=== PATIENT | female | born 1970 | race Two or more races ===

== ENCOUNTER 2018-07-25 10:55 | Inpatient (IN) | payer BC ==
[~2018-07-25] VITALS: Ht 162.6 cm; Wt 54.3 kg
[2018-07-25] MEDS ORDERED: SODIUM CHLORIDE 0.9% 1,000 ML IVB ONE (11:02)
[2018-07-25 11:22] LABS: Basophils # (auto) 0 uL; Basophils % (auto) 0.3 % (0.0-2.0); Eosinophils # (auto) 0 uL; Hemoglobin 15.3 g/dL (12.2-16.2); Lymphocytes # (auto) 0.7 uL; Lymphocytes % (auto) 6.9 % (10.0-50.0); Mean Corpuscular Hemoglobin 30.7 pg (28.0-32.0); Mean Corpuscular Hgb Conc. 34.1 g/dL (32.0-36.0); Mean Corpuscular Volume 90.1 fL (80.0-100.0); Monocytes # (auto) 0.2 uL; Monocytes % (auto) 1.6 % (0.0-12.0); Neutrophils # (auto) 9.6 uL; Neutrophils % (auto) 91.2 % (37.0-80.0); Platelet Count (auto) 191 10^3/uL (140-450); Red Blood Cells 4.99 10^6/uL (4.0-5.20); Red Cell Distribution Width 13.1 % (11.8-14.3); White Blood Cell 10.5 10^3/uL (4.4-10.8)
[2018-07-25 11:35] LABS: INR 0.92 (0.9-1.15); Partial Thromboplastin Time 22.3 sec (23.78-33.04); Prothrombin Time 9.9 sec (9.27-12.13)
[2018-07-25 11:40] LABS: Alanine Aminotransferase 17 U/L (13-56); Albumin 3.9 g/dL (3.4-5.0); Anion Gap 9 (5-15); Aspartate Aminotransferase 11 U/L (15-37); BUN/Creatinine Ratio 19.7; Blood Alcohol < 3.0 mg/dL (0-5); Blood Urea Nitrogen 13 mg/dL (7-18); Calcium 8.9 mg/dL (8.5-10.1); Carbon Dioxide 21 mmol/L (21-32); Chloride 105 mmol/L (98-107); GFR African American 122 mL/min; GFR Non-African American 101 mL/min; Glucose 363 mg/dL (74-106); Magnesium 2.2 mg/dL (1.6-2.6); Potassium 4.3 mmol/L (3.5-5.1); Sodium 135 mmol/L (136-145)
[2018-07-25 11:44] LABS: Alkaline Phosphatase 84 U/L (45-117); Bilirubin, Total 0.9 mg/dL (0.2-1.0); Total Protein 7.6 g/dL (6.4-8.2)
[2018-07-25 15:30] LABS: Urine Bacteria FEW /hpf (None Seen); Urine Blood Negative /uL (Negative); Urine WBC 2 /hpf (0 - 5)
[2018-07-25] MEDS ORDERED: PROCHLORPERAZINE EDISYLATE 5 MG/ML 2ML VIAL IV ONE (15:30)
[2018-07-25] MEDS ORDERED: KETOROLAC TROMETH 30 MG/ML 1ML VIAL IV ONE (15:45)
[2018-07-25] MEDS: SODIUM CHLORIDE 0.9% 1,000 ML IV SCH (16:28)
[2018-07-25] MEDS ORDERED: LABETALOL HCL 5 MG/ML ML 20ML VIAL IV PRN (16:30)
[2018-07-25] MEDS ORDERED: PROMETHAZINE HCL 25 MG/ML 1ML IV PRN (16:30)
[2018-07-25] MEDS ORDERED: MORPHINE SULFATE 4 MG/ML SYR/VIAL IV PRN ×2 (16:30)
[2018-07-25] MEDS ORDERED: NITROGLYCERIN 0.4 MG SL TAB SL PRN (16:30)
[2018-07-25] MEDS ORDERED: LORazepam 0.5 MG TAB PO PRN (16:30)
[2018-07-25] MEDS ORDERED: LACTULOSE 20Gm/30ML SOLN PO PRN (16:30)
[2018-07-25] MEDS ORDERED: cefTRIAXone 1GM/50ML D5W 50 ML IV ONE (16:30)
[2018-07-25] MEDS ORDERED: DEXTROSE (50%) 50ML SYRG IV PRN (16:30)
[2018-07-25] MEDS ORDERED: TEMAZEPAM 15 MG CAP PO PRN (16:30)
[2018-07-25 18:35] LABS: Alcohol, Urine < 3.0 mg/dL (0-5); Amphetamine Screen, Urine NEGATIVE (NEGATIVE); Barbiturate Scree,Urine NEGATIVE (NEGATIVE); Benzodiazephine Screen, Urine NEGATIVE (NEGATIVE); Cannabinoid Screen, Urine NEGATIVE (NEGATIVE); Cocaine Screen, Urine NEGATIVE (NEGATIVE); Opiate Scree,Urine NEGATIVE (NEGATIVE); Phencyclidine Screen, Urine NEGATIVE (NEGATIVE)
[2018-07-25 18:59] LABS: CRP High Sensitivity 0.18 mg/dL (< 0.3)
[2018-07-25 19:42] VITALS: BP 120/71
[2018-07-25 19:46] LABS: Folate (Folic Acid) 23.86 ng/mL (5.38-24)
[2018-07-25] MEDS ORDERED: LORazepam 2MG/ML-1ML VIAL IV PRN (20:00)
[2018-07-25 20:04] VITALS: BP 120/71
[2018-07-25] MEDS: FAMOTIDINE 20 MG TAB PO SCH (22:40)
[2018-07-25] MEDS: ACCU-CHEK COMFORT CURVE STRIP VI SCH (22:40)
[2018-07-25] MEDS: ATORVASTATIN 20 MG TAB PO SCH (22:40)
[2018-07-25] MEDS: InsuLIN REG 1unit/0.01ml Soln (100units/ml) SC SCH (22:41)
[2018-07-26] MEDS: ACCU-CHEK COMFORT CURVE STRIP VI SCH ×6 (00:19→19:36)
[2018-07-26] MEDS: InsuLIN REG 1unit/0.01ml Soln (100units/ml) SC SCH ×6 (00:20→19:45)
[2018-07-26] MEDS: SODIUM CHLORIDE 0.9% 1,000 ML IV SCH ×2 (03:58→16:25)
[2018-07-26 05:53] VITALS: BP 121/71
[2018-07-26 06:24] LABS: Cholesterol 184 mg/dL (< 200)
[2018-07-26 06:27] LABS: HDL Cholesterol 40 mg/dL (40-59); LDL Cholesterol 122 mg/dL (< 100); Triglycerides 240 mg/dL (< 150)
[2018-07-26] MEDS: cefTRIAXone 1GM/50ML D5W 50 ML IV SCH (08:29)
[2018-07-26 09:00] VITALS: BP 114/70
[2018-07-26] MEDS: ENOXAPARIN SOD 40 MG/0.4 ML SYRINGE SC SCH (10:26)
[2018-07-26] MEDS: ASPirin 81 mg TAB PO SCH (10:26)
[2018-07-26] MEDS: FAMOTIDINE 20 MG TAB PO SCH ×2 (10:26→22:42)
[2018-07-26] MEDS: HYDROcodone-ACET 5/325MG TAB PO PRN (10:56)
[2018-07-26 13:00] VITALS: BP 130/81
[2018-07-26] MEDS ORDERED: OMEP20TA PO (16:43)
[2018-07-26] MEDS ORDERED: CHOL20007 PO (16:44)
[2018-07-26] MEDS ORDERED: ATOR20TA50 PO (16:44)
[2018-07-26] MEDS ORDERED: ENAL2.5T PO (16:45)
[2018-07-26] MEDS ORDERED: GABA100C9 PO (16:45)
[2018-07-26] MEDS ORDERED: INSU100I2 SC (16:45)
[2018-07-26] MEDS ORDERED: INSLANTI SC (16:46)
[2018-07-26 17:21] VITALS: BP 134/74
[2018-07-26] MEDS: ACETAMINOPHEN 500 MG TAB PO PRN (19:31)
[2018-07-26 22:00] VITALS: BP 148/80
[2018-07-26] MEDS: ATORVASTATIN 20 MG TAB PO SCH (22:42)
[2018-07-27] MEDS: InsuLIN REG 1unit/0.01ml Soln (100units/ml) SC SCH ×6 (00:01→21:10)
[2018-07-27] MEDS: ACCU-CHEK COMFORT CURVE STRIP VI SCH ×6 (00:01→20:00)
[2018-07-27 05:00] VITALS: BP 124/73
[2018-07-27] MEDS: SODIUM CHLORIDE 0.9% 1,000 ML IV SCH ×2 (07:33→18:25)
[2018-07-27] MEDS: ACETAMINOPHEN 500 MG TAB PO PRN (07:40)
[2018-07-27] MEDS: cefTRIAXone 1GM/50ML D5W 50 ML IV SCH (08:40)
[2018-07-27 08:44] VITALS: BP 140/83
[2018-07-27 08:46] VITALS: BP 137/68
[2018-07-27] MEDS: FAMOTIDINE 20 MG TAB PO SCH ×2 (09:35→21:13)
[2018-07-27] MEDS: ENOXAPARIN SOD 40 MG/0.4 ML SYRINGE SC SCH (09:35)
[2018-07-27] MEDS: ASPirin 81 mg TAB PO SCH (09:35)
[2018-07-27 13:00] VITALS: BP 155/75
[2018-07-27] MEDS: HYDROcodone-ACET 5/325MG TAB PO PRN (15:10)
[2018-07-27 16:31] VITALS: BP 155/91
[2018-07-27] MEDS ORDERED: ENALAPRIL MALEATE 2.5 MG TAB PO ONE (18:15)
[2018-07-27] MEDS: ATORVASTATIN 20 MG TAB PO SCH (21:13)
[2018-07-27 21:36] VITALS: BP 119/68
[2018-07-28] MEDS: ACCU-CHEK COMFORT CURVE STRIP VI SCH ×5 (00:13→16:00)
[2018-07-28] MEDS: InsuLIN REG 1unit/0.01ml Soln (100units/ml) SC SCH ×5 (04:30→16:00)
[2018-07-28 04:48] VITALS: BP 127/69
[2018-07-28] MEDS: SODIUM CHLORIDE 0.9% 1,000 ML IV SCH (06:58)
[2018-07-28 09:00] VITALS: BP 135/71
[2018-07-28] MEDS ORDERED: ENALAPRIL MALEATE 2.5 MG TAB PO SCH (10:00)
[2018-07-28] MEDS: ENOXAPARIN SOD 40 MG/0.4 ML SYRINGE SC SCH (10:21)
[2018-07-28] MEDS: cefTRIAXone 1GM/50ML D5W 50 ML IV SCH (10:21)
[2018-07-28] MEDS: FAMOTIDINE 20 MG TAB PO SCH (10:22)
[2018-07-28] MEDS: ASPirin 81 mg TAB PO SCH (10:22)
[2018-07-28] MEDS: HYDROcodone-ACET 5/325MG TAB PO PRN (10:23)
[2018-07-28 13:00] VITALS: BP 128/68
== END 2018-07-28 17:30 | disposition home or self-care (01) | DRG 155 ==
LOC: EDBD 10:55 → ER 10:59 → TELE 16:40 → TELE-WESTW 19:43
PROVIDERS: ADMIT Internal Medicine; ATTEND Family Medicine
DX: H93.11 Tinnitus, right ear (principal); N39.0 Urinary tract infection, site not specified; E78.5 Hyperlipidemia, unspecified; E78.00 Pure hypercholesterolemia, unspecified; E11.65 Type 2 diabetes mellitus with hyperglycemia; E03.9 Hypothyroidism, unspecified; E86.0 Dehydration; I10 Essential (primary) hypertension; E11.42 Type 2 diabetes mellitus with diabetic polyneuropathy; R00.0 Tachycardia, unspecified; H91.91 Unspecified hearing loss, right ear; E66.3 Overweight; Z82.49 Family history of ischemic heart disease and other diseases of the circulatory system; Z90.710 Acquired absence of both cervix and uterus; Z98.82 Breast implant status; Z83.3 Family history of diabetes mellitus; Z68.20 Body mass index [BMI] 20.0-20.9, adult
CPT/HCPCS: 36415; 70450; 70480; 70551; 71045; 80053; 80061; 80307; 80320; 81001; 82150; 82550; 82607; 82746; 82962; 83036; 83690; 83735; 84443; 84484; 85025; 85379; 85610; 85652; 85730; 86141; 93005; 93306; 93886; 94761; 96374; 96375; 97163; G0378; J0696; J1815; J1885

== ENCOUNTER → 2023-07-05 | Outpatient (CLI) | payer OTHER ==
[~2023-07-05] MED LIST: ATOR20TA50 PO; CEFD300C2 PO; CHOL20007 PO; ENAL1TAB42 PO; GABA-1308 PO; INSLANTI SC; INSU100I2 SC; OMEP20TA PO
[2023-07-05 08:19] LABS: Basophils # (auto) 0 10 ^3/uL (0-0.2); Basophils % (auto) 0.7 % (0.0-2.0); Eosinophils # (auto) 0.1 10 ^3/uL (0-0.8); Eosinophils % (auto) 2.2 % (0.0-7.0); Hemoglobin 13.6 g/dL (12.2-16.2); Lymphocytes # (auto) 3.1 10 ^3/uL (0.4-5.4); Mean Corpuscular Hemoglobin 29.7 pg (28.0-32.0); Mean Corpuscular Hgb Conc. 33.2 g/dL (32.0-36.0); Mean Corpuscular Volume 89.5 fL (80.0-100.0); Monocytes # (auto) 0.4 10 ^3/uL (0-1.3); Monocytes % (auto) 5.9 % (0.0-12.0); Neutrophils # (auto) 2.5 10 ^3/uL (1.6-8.6); Neutrophils % (auto) 40.2 % (37.0-80.0); Red Blood Cells 4.58 10^6/uL (4.0-5.20); Red Cell Distribution Width 13.6 % (11.8-14.3); White Blood Cell 6.1 10^3/uL (4.4-10.8)
[2023-07-05 08:37] LABS: Urine Bacteria FEW /hpf (None Seen); Urine Blood Negative /uL (Negative); Urine Clarity Clear (Clear); Urine Color Yellow (Yellow); Urine Protein, UAD 1+ (Negative); Urine Specific Gravity 1.031 (1.001-1.035); Urine Urobilinogen Normal (Negative); Urine WBC 19 /hpf (0 - 5); Urine pH 5.5 (5.0-8.0)
[2023-07-05 09:40] LABS: Alanine Aminotransferase 21 U/L (7-40); Albumin 4.3 g/dL (3.2-4.8); Alkaline Phosphatase 99 U/L (46-116); Anion Gap 8 (5-15); Aspartate Aminotransferase 17 U/L (13-40); BUN/Creatinine Ratio 19.3 (10.0-20.0); Blood Urea Nitrogen 16 mg/dL (9-23); Calcium 9.9 mg/dL (8.5-10.1); Carbon Dioxide 27 mmol/L (20-30); Chloride 105 mmol/L (98-107); Glucose 229 mg/dL (74-106); Potassium 4.4 mmol/L (3.5-5.1); Sodium 140 mmol/L (136-145); Triglycerides 676 mg/dL (< 150)
[2023-07-05 09:41] LABS: Bilirubin, Total 0.4 mg/dL (0.2-1.0); Cholesterol 329 mg/dL (< 200); Creatinine, Urine 36.88 mg/dL (30.0-125.0); HDL Cholesterol 44 mg/dL (40-59); Total Protein 7.1 g/dL (5.7-8.2)
== END | disposition home or self-care (01) ==
LOC: LAB 07:51
PROVIDERS: ATTEND Student in an Organized Health Care Education/Training Program
DX: E11.21 Type 2 diabetes mellitus with diabetic nephropathy (principal); E05.90 Thyrotoxicosis, unspecified without thyrotoxic crisis or storm; K30 Functional dyspepsia
CPT/HCPCS: 36415; 80053; 80061; 81001; 82043; 82306; 82570; 83036; 84436; 84443; 85025

== ENCOUNTER → 2023-07-11 | Outpatient (CLI) | payer OTHER | END | disposition home or self-care (01) | LOC: LAB 06:38 | PROVIDERS: ATTEND Student in an Organized Health Care Education/Training Program | DX: E11.21 Type 2 diabetes mellitus with diabetic nephropathy (principal); E05.90 Thyrotoxicosis, unspecified without thyrotoxic crisis or storm; K30 Functional dyspepsia | CPT/HCPCS: 82270 ==

== ENCOUNTER → 2023-07-17 | Outpatient (CLI) | payer OTHER ==
[2023-07-17 08:58] LABS: Alanine Aminotransferase 19 U/L (7-40); Albumin 4.3 g/dL (3.2-4.8); Alkaline Phosphatase 119 U/L (46-116); Amylase 59 U/L (30-118); Anion Gap 6 (5-15); Aspartate Aminotransferase 13 U/L (13-40); BUN/Creatinine Ratio 14.9 (10.0-20.0); Bilirubin, Total 0.5 mg/dL (0.2-1.0); Blood Urea Nitrogen 14 mg/dL (9-23); Carbon Dioxide 29 mmol/L (20-30); Chloride 104 mmol/L (98-107); Glucose 349 mg/dL (74-106); Potassium 4.7 mmol/L (3.5-5.1); Sodium 139 mmol/L (136-145); Total Protein 7.3 g/dL (5.7-8.2)
[2023-07-17 09:06] LABS: Lipase 38 U/L (12-53)
== END | disposition home or self-care (01) ==
LOC: LAB 08:18
PROVIDERS: ATTEND Student in an Organized Health Care Education/Training Program
DX: R10.84 Generalized abdominal pain (principal)
CPT/HCPCS: 36415; 80053; 82150; 83690

== ENCOUNTER 2023-12-01 08:08 | Inpatient (IN) | payer MEDICAID, OTHER ==
[~2023-12-01] VITALS: Ht 154.9 cm; Wt 59.8 kg
[2023-12-01 08:44] LABS: Urine Bacteria MANY /hpf (None Seen); Urine Blood TRACE /uL (Negative); Urine Clarity Turbid (Clear); Urine Color Yellow (Yellow); Urine Mucus FEW (None Seen); Urine Protein, UAD 3+ (Negative); Urine Specific Gravity 1.027 (1.001-1.035); Urine Urobilinogen Normal (Negative); Urine WBC 30 /hpf (0 - 5)
[2023-12-01] MEDS: cloNIDine HCL 0.1 MG TAB PO ONE (08:51)
[2023-12-01 08:58] LABS: Basophils # (auto) 0.1 10 ^3/uL (0-0.2); Basophils % (auto) 0.5 % (0.0-2.0); Eosinophils # (auto) 0.3 10 ^3/uL (0-0.8); Eosinophils % (auto) 2.9 % (0.0-7.0); Hematocrit 43.6 % (36.0-46.0); Hemoglobin 14.8 g/dL (12.2-16.2); Lymphocytes # (auto) 2.2 10 ^3/uL (0.4-5.4); Lymphocytes % (auto) 22.7 % (10.0-50.0); Mean Corpuscular Hemoglobin 30.1 pg (28.0-32.0); Mean Corpuscular Hgb Conc. 33.9 g/dL (32.0-36.0); Mean Corpuscular Volume 88.6 fL (80.0-100.0); Monocytes # (auto) 0.4 10 ^3/uL (0-1.3); Monocytes % (auto) 4.3 % (0.0-12.0); Neutrophils # (auto) 6.8 10 ^3/uL (1.6-8.6); Neutrophils % (auto) 69.6 % (37.0-80.0); Red Blood Cells 4.92 10^6/uL (4.0-5.20); Red Cell Distribution Width 13.7 % (11.8-14.3); White Blood Cell 9.8 10^3/uL (4.4-10.8)
[2023-12-01 09:05] LABS: Alanine Aminotransferase 24 U/L (7-40); Albumin 4.6 g/dL (3.2-4.8); Alkaline Phosphatase 97 U/L (46-116); Anion Gap 7 (5-15); Aspartate Aminotransferase 19 U/L (13-40); BUN/Creatinine Ratio 14.1 (10.0-20.0); Bilirubin, Total 0.4 mg/dL (0.2-1.0); Blood Urea Nitrogen 11 mg/dL (9-23); Calcium 9.9 mg/dL (8.5-10.1); Carbon Dioxide 25 mmol/L (20-30); Chloride 105 mmol/L (98-107); Glucose 282 mg/dL (74-106); Potassium 4.2 mmol/L (3.5-5.1); Sodium 137 mmol/L (136-145); Total Protein 7.8 g/dL (5.7-8.2)
[2023-12-01] MEDS: cefTRIAXone 1GM/50ML D5W 50 ML IV ONE (10:56)
[2023-12-01 11:29] VITALS: PULSE 74; RESP 16; O2SAT 96
[2023-12-01] MEDS ORDERED: DEXTROSE (50%) 50ML SYRG IV PRN (11:30)
[2023-12-01] MEDS ORDERED: DOCUSATE SOD 100 MG CAP PO PRN (11:30)
[2023-12-01] MEDS: PIPERACILLIN-TAZOB 3.375GM 100 ML IV ONE (11:58)
[2023-12-01] MEDS: ACCU-CHEK COMFORT CURVE STRIP VI SCH (12:03)
[2023-12-01] MEDS: InsuLIN REG 1unit/0.01ml Soln (100units/ml) SC SCH ×2 (12:03→21:05)
[2023-12-01] MEDS: GABAPENTIN 100 MG CAP PO SCH (13:19)
[2023-12-01] MEDS: IOHEXOL 300 MG/ML 100ML BOTTLE IJ ONE (13:39)
[2023-12-01 17:00] VITALS: BP 142/72; PULSE 74; RESP 20; TEMP 98; O2SAT 98
[2023-12-01] MEDS: SODIUM CHLORIDE 0.9% 1,000 ML IV SCH (17:18)
[2023-12-01] MEDS: ONDANSETRON HCL 4 MG/2 ML VIAL IV PRN (18:19)
[2023-12-01] MEDS: MORPHINE SULFATE INJ 2 MG/ml SYRG IV PRN (18:22)
[2023-12-01 18:23] VITALS: BP_SYST 140; BP_SYST 142; BP_DIAS 72; BP_DIAS 73; PULSE 74; PULSE 75; RESP 18; RESP 20; TEMP 98; O2SAT 98
[2023-12-01] MEDS: PIPERACILLIN-TAZOB 3.375GM 100 ML IV SCH (19:55)
[2023-12-01 20:00] VITALS: BP 112/65; PULSE 77; RESP 17; TEMP 97.7; O2SAT 94
[2023-12-01] MEDS ORDERED: EMPA1TAB3 PO (20:27)
[2023-12-01 21:00] VITALS: BP 112/65; PULSE 77; RESP 17; TEMP 97.7; O2SAT 94
[2023-12-02] VITALS (8 sets, daily range): BP systolic 126–153; BP diastolic 66–74; PULSE 74–79; RESP 16–18; TEMP 97.8–98.8; O2SAT 93–97
[2023-12-02 07:08] LABS: Basophils # (auto) 0.1 10 ^3/uL (0-0.2); Basophils % (auto) 0.6 % (0.0-2.0); Eosinophils # (auto) 0.3 10 ^3/uL (0-0.8); Eosinophils % (auto) 3.9 % (0.0-7.0); Hematocrit 35.8 % (36.0-46.0); Hemoglobin 12.1 g/dL (12.2-16.2); Lymphocytes # (auto) 3.6 10 ^3/uL (0.4-5.4); Lymphocytes % (auto) 40.1 % (10.0-50.0); Mean Corpuscular Hemoglobin 29.6 pg (28.0-32.0); Mean Corpuscular Hgb Conc. 33.9 g/dL (32.0-36.0); Mean Corpuscular Volume 87.2 fL (80.0-100.0); Monocytes # (auto) 0.6 10 ^3/uL (0-1.3); Neutrophils # (auto) 4.3 10 ^3/uL (1.6-8.6); Neutrophils % (auto) 48.4 % (37.0-80.0); Nucleated Red Blood Cells % 0.1 %; Red Cell Distribution Width 14.2 % (11.8-14.3); White Blood Cell 8.9 10^3/uL (4.4-10.8)
[2023-12-02 07:29] LABS: Alanine Aminotransferase 14 U/L (7-40); Albumin 3.7 g/dL (3.2-4.8); Alkaline Phosphatase 68 U/L (46-116); Anion Gap 8 (5-15); Aspartate Aminotransferase 14 U/L (13-40); BUN/Creatinine Ratio 15.9 (10.0-20.0); Bilirubin, Total 0.5 mg/dL (0.2-1.0); Blood Urea Nitrogen 14 mg/dL (9-23); Calcium 9.3 mg/dL (8.7-10.4); Carbon Dioxide 25 mmol/L (20-30); Chloride 107 mmol/L (98-107); Glucose 138 mg/dL (74-106); Potassium 3.9 mmol/L (3.5-5.1); Sodium 140 mmol/L (136-145)
[2023-12-02 07:30] LABS: Total Protein 6.1 g/dL (5.7-8.2)
[2023-12-02] MEDS: ATORVASTATIN 20 MG TAB PO SCH ×2 (09:14→20:49)
[2023-12-02] MEDS: ENALAPRIL MALEATE 2.5 MG TAB PO SCH (09:14)
[2023-12-02] MEDS: PANTOPRAZOLE 40 MG TAB PO SCH (09:14)
[2023-12-02 10:10] LABS: Phosphorus 4.8 mg/dL (2.4-5.1)
[2023-12-02 11:06] LABS: INR 0.99 (0.9-1.15); Partial Thromboplastin Time 24.5 SEC (24.5-34.5); Prothrombin Time 10.5 sec (9.3-11.8)
[2023-12-02] MEDS: CHOLECALCIFEROL (VITD3) 1,000UNIT=25mCg TAB PO SCH (13:16)
[2023-12-02] MEDS: MEROPENEM 1GM IVPB 50 ML IV SCH (17:00)
[2023-12-02] MEDS: hydrALAZINE HCL 20 MG/ML VL IV PRN (19:22)
[2023-12-03] VITALS (8 sets, daily range): BP systolic 118–166; BP diastolic 62–76; PULSE 63–98; RESP 16–20; TEMP 97.4–98.5; O2SAT 96–98
[2023-12-03] MEDS: ACETAMINOPHEN 325 MG TAB PO PRN (05:32)
[2023-12-03 06:14] LABS: Basophils # (auto) 0 10 ^3/uL (0-0.2); Basophils % (auto) 0.4 % (0.0-2.0); Eosinophils # (auto) 0.2 10 ^3/uL (0-0.8); Eosinophils % (auto) 2.2 % (0.0-7.0); Hematocrit 35.9 % (36.0-46.0); Hemoglobin 12.4 g/dL (12.2-16.2); Lymphocytes # (auto) 2.3 10 ^3/uL (0.4-5.4); Lymphocytes % (auto) 28.7 % (10.0-50.0); Mean Corpuscular Hemoglobin 30.1 pg (28.0-32.0); Mean Corpuscular Hgb Conc. 34.5 g/dL (32.0-36.0); Mean Corpuscular Volume 87.3 fL (80.0-100.0); Monocytes # (auto) 0.6 10 ^3/uL (0-1.3); Monocytes % (auto) 7.3 % (0.0-12.0); Neutrophils # (auto) 4.9 10 ^3/uL (1.6-8.6); Neutrophils % (auto) 61.4 % (37.0-80.0); Red Blood Cells 4.11 10^6/uL (4.0-5.20); Red Cell Distribution Width 13.4 % (11.8-14.3); White Blood Cell 8.1 10^3/uL (4.4-10.8)
[2023-12-03] MEDS: INSULIN LANTUS (GLARGINE) 1 /0.01ml (100units/ml) SC SCH (06:18)
[2023-12-03 06:24] LABS: Alanine Aminotransferase 15 U/L (7-40); Albumin 3.6 g/dL (3.2-4.8); Alkaline Phosphatase 66 U/L (46-116); Anion Gap 9 (5-15); Aspartate Aminotransferase 15 U/L (13-40); BUN/Creatinine Ratio 13.6 (10.0-20.0); Blood Urea Nitrogen 9 mg/dL (9-23); Calcium 9.3 mg/dL (8.7-10.4); Carbon Dioxide 22 mmol/L (20-30); Chloride 110 mmol/L (98-107); Glucose 156 mg/dL (74-106); Magnesium 1.9 mg/dL (1.6-2.6); Potassium 3.8 mmol/L (3.5-5.1); Sodium 141 mmol/L (136-145)
[2023-12-03 06:25] LABS: Bilirubin, Total 0.6 mg/dL (0.2-1.0); Phosphorus 3.5 mg/dL (2.4-5.1); Total Protein 6.2 g/dL (5.7-8.2)
[2023-12-03] MEDS: ENALAPRIL MALEATE 2.5 MG TAB PO SCH (10:35)
[2023-12-03] MEDS: ASPirin 81 mg TAB PO ONE (11:48)
[2023-12-03] MEDS ORDERED: IOTHALAMATE MEGLUMINE INJ 250ML BOT UR ONE (12:32)
[2023-12-03] MEDS: hydrOXYzine HCL 10 MG TAB PO PRN (22:14)
[2023-12-04] VITALS (9 sets, daily range): BP systolic 122–173; BP diastolic 51–82; PULSE 75–96; RESP 16–20; TEMP 98.1–98.8; O2SAT 94–98
[2023-12-04 05:27] LABS: Basophils # (auto) 0 10 ^3/uL (0-0.2); Basophils % (auto) 0.3 % (0.0-2.0); Eosinophils # (auto) 0.1 10 ^3/uL (0-0.8); Eosinophils % (auto) 1.5 % (0.0-7.0); Hematocrit 35.4 % (36.0-46.0); Lymphocytes # (auto) 3.3 10 ^3/uL (0.4-5.4); Lymphocytes % (auto) 33.5 % (10.0-50.0); Mean Corpuscular Hemoglobin 29.8 pg (28.0-32.0); Mean Corpuscular Volume 87.6 fL (80.0-100.0); Monocytes # (auto) 0.6 10 ^3/uL (0-1.3); Monocytes % (auto) 6.5 % (0.0-12.0); Neutrophils # (auto) 5.7 10 ^3/uL (1.6-8.6); Neutrophils % (auto) 58.2 % (37.0-80.0); Nucleated Red Blood Cells % 0.1 %; Red Blood Cells 4.04 10^6/uL (4.0-5.20); Red Cell Distribution Width 13.9 % (11.8-14.3); White Blood Cell 9.8 10^3/uL (4.4-10.8)
[2023-12-04 05:39] LABS: Alanine Aminotransferase 12 U/L (7-40); Albumin 3.6 g/dL (3.2-4.8); Alkaline Phosphatase 63 U/L (46-116); Anion Gap 8 (5-15); Aspartate Aminotransferase 14 U/L (13-40); Bilirubin, Total 0.6 mg/dL (0.2-1.0); Blood Urea Nitrogen 9 mg/dL (9-23); Calcium 9.3 mg/dL (8.7-10.4); Carbon Dioxide 23 mmol/L (20-30); Chloride 110 mmol/L (98-107); Glucose 115 mg/dL (74-106); Potassium 3.7 mmol/L (3.5-5.1); Sodium 141 mmol/L (136-145); Total Protein 6.1 g/dL (5.7-8.2)
[2023-12-04 06:10] LABS: Phosphorus 3.6 mg/dL (2.4-5.1)
[2023-12-04] MEDS: ASPirin 81 mg TAB PO SCH (09:27)
[2023-12-04] MEDS: amLODIPine BESYLATE 5 MG TAB PO SCH (09:28)
[2023-12-04 19:32] LABS: Urine Bacteria None Seen /hpf (None Seen)
[2023-12-04 20:02] LABS: Urine Blood Negative /uL (Negative); Urine Clarity Clear (Clear); Urine Color Colorless (Yellow); Urine Protein, UAD 1+ (Negative); Urine Urobilinogen Normal (Negative); Urine WBC 3 /hpf (0 - 5)
[2023-12-04 20:10] LABS: Amphetamine Screen, Urine Neg (NEGATIVE); Barbiturate Scree,Urine Neg (NEGATIVE); Benzodiazephine Screen, Urine Neg (NEGATIVE); Cocaine Screen, Urine Neg (NEGATIVE); Opiate Scree,Urine Neg (NEGATIVE)
[2023-12-04 20:11] LABS: Cannabinoid Screen, Urine Neg (NEGATIVE); Phencyclidine Screen, Urine Neg (NEGATIVE)
[2023-12-04] MEDS: ENALAPRIL MALEATE 10 MG TAB PO SCH (22:45)
[2023-12-05 05:00] VITALS: BP 110/41; PULSE 82; RESP 16; TEMP 98.1; O2SAT 96
[2023-12-05 06:24] LABS: Basophils # (auto) 0 10 ^3/uL (0-0.2); Basophils % (auto) 0.3 % (0.0-2.0); Eosinophils # (auto) 0.2 10 ^3/uL (0-0.8); Hematocrit 34.9 % (36.0-46.0); Hemoglobin 11.7 g/dL (12.2-16.2); Lymphocytes # (auto) 3.3 10 ^3/uL (0.4-5.4); Lymphocytes % (auto) 36.7 % (10.0-50.0); Mean Corpuscular Hemoglobin 29.6 pg (28.0-32.0); Mean Corpuscular Hgb Conc. 33.5 g/dL (32.0-36.0); Mean Corpuscular Volume 88.4 fL (80.0-100.0); Monocytes # (auto) 0.8 10 ^3/uL (0-1.3); Monocytes % (auto) 8.9 % (0.0-12.0); Neutrophils # (auto) 4.7 10 ^3/uL (1.6-8.6); Neutrophils % (auto) 52.1 % (37.0-80.0); Red Blood Cells 3.94 10^6/uL (4.0-5.20)
[2023-12-05 06:29] LABS: Chloride 114 mmol/L (98-107); Potassium 3.5 mmol/L (3.5-5.1)
[2023-12-05 06:30] LABS: Anion Gap 8 (5-15); Carbon Dioxide 25 mmol/L (20-30)
[2023-12-05 06:31] LABS: Calcium 8.8 mg/dL (8.5-10.1)
[2023-12-05 06:35] LABS: Glucose 78 mg/dL (74-106)
[2023-12-05 06:36] LABS: BUN/Creatinine Ratio 9.1 (10.0-20.0); Blood Urea Nitrogen 6 mg/dL (9-23)
[2023-12-05 06:38] LABS: Phosphorus 3.5 mg/dL (2.4-5.1)
[2023-12-05 07:03] LABS: Sodium 147 mmol/L (136-145)
[2023-12-05 07:18] LABS: Magnesium 2.2 mg/dL (1.6-2.6)
[2023-12-05] MEDS ORDERED: ENAL1TAB47 PO (07:26)
[2023-12-05] MEDS ORDERED: CEPH250C PO (07:26)
[2023-12-05] MEDS ORDERED: ATOR20TA50 PO (07:26)
[2023-12-05] MEDS ORDERED: ASPI-325 PO (07:26)
[2023-12-05] MEDS ORDERED: AML5T PO (07:26)
[2023-12-05] MEDS ORDERED: HYDRX10T PO (07:26)
[2023-12-05 08:00] VITALS: BP 135/56; PULSE 80; RESP 18; TEMP 98.8; O2SAT 97
[2023-12-05 08:43] VITALS: BP 135/56; PULSE 80; RESP 18; TEMP 98.8; O2SAT 97
[2023-12-05] MEDS ORDERED: GLIP10TA9 PO (10:20)
[2023-12-05 10:35] VITALS: BP 135/56; TEMP 37.1
[2023-12-05 12:25] VITALS: BP 119/65; PULSE 85; RESP 19; TEMP 97.9; O2SAT 94
== END 2023-12-05 13:10 | disposition home or self-care (01) | DRG 463 ==
LOC: ER 08:08 → OVERFLOW 12:48 → CENTRAL 17:46
PROVIDERS: ADMIT Internal Medicine; ATTEND Internal Medicine
DX: N30.80 Other cystitis without hematuria (principal); E03.9 Hypothyroidism, unspecified; E11.65 Type 2 diabetes mellitus with hyperglycemia; E78.5 Hyperlipidemia, unspecified; I16.0 Hypertensive urgency; K21.9 Gastro-esophageal reflux disease without esophagitis; K80.20 Calculus of gallbladder without cholecystitis without obstruction; Z79.4 Long term (current) use of insulin; Z79.899 Other long term (current) drug therapy; Z79.84 Long term (current) use of oral hypoglycemic drugs; Z83.3 Family history of diabetes mellitus; Z82.49 Family history of ischemic heart disease and other diseases of the circulatory system; Z86.73 Personal history of transient ischemic attack (TIA), and cerebral infarction without residual deficits; Z91.148 Patient's other noncompliance with medication regimen for other reason; Z79.82 Long term (current) use of aspirin
CPT/HCPCS: 36415; 74176; 74177; 74430; 80048; 80053; 80061; 80307; 81001; 82306; 82607; 82962; 83036; 83605; 83735; 84100; 84443; 84484; 85025; 85610; 85730; 87040; 87086; 93005; 96365; 96375; G0378; J1815; J2185; J2405; J2543

== ENCOUNTER → 2024-04-28 | Outpatient (CLI) | payer MEDICAID ==
[~2024-04-28] MED LIST changes: +AML5T PO; +ASPI-325 PO; -CEFD300C2 PO; +CEPH250C PO; -ENAL1TAB42 PO; +ENAL1TAB47 PO; +GLIP10TA9 PO; +HYDRX10T PO
[2024-04-28 09:26] LABS: Basophils # (auto) 0 10 ^3/uL (0-0.2); Basophils % (auto) 0.6 % (0.0-2.0); Eosinophils # (auto) 0.2 10 ^3/uL (0-0.8); Eosinophils % (auto) 2.8 % (0.0-7.0); Hemoglobin 11.9 g/dL (12.2-16.2); Lymphocytes # (auto) 3.3 10 ^3/uL (0.4-5.4); Lymphocytes % (auto) 41.9 % (10.0-50.0); Mean Corpuscular Hemoglobin 30.1 pg (28.0-32.0); Mean Corpuscular Hgb Conc. 34.9 g/dL (32.0-36.0); Mean Corpuscular Volume 86.1 fL (80.0-100.0); Monocytes # (auto) 0.5 10 ^3/uL (0-1.3); Monocytes % (auto) 6.5 % (0.0-12.0); Neutrophils # (auto) 3.8 10 ^3/uL (1.6-8.6); Neutrophils % (auto) 48.2 % (37.0-80.0); Platelet Count (auto) 237 10^3/uL (140-450); Red Blood Cells 3.95 10^6/uL (4.0-5.20); White Blood Cell 7.9 10^3/uL (4.4-10.8)
[2024-04-28 09:58] LABS: Alanine Aminotransferase 27 U/L (7-40); Albumin 4.3 g/dL (3.2-4.8); Alkaline Phosphatase 115 U/L (46-116); Anion Gap 7 (5-15); Aspartate Aminotransferase 17 U/L (13-40); BUN/Creatinine Ratio 17.2 (10.0-20.0); Blood Urea Nitrogen 16 mg/dL (9-23); Calcium 10.1 mg/dL (8.7-10.4); Carbon Dioxide 26 mmol/L (20-30); Chloride 109 mmol/L (98-107); Cholesterol 162 mg/dL (< 200); Glucose 197 mg/dL (74-106); HDL Cholesterol 42 mg/dL (40-59); LDL Cholesterol 75 mg/dL (< 100); Potassium 4.5 mmol/L (3.5-5.1); Sodium 142 mmol/L (136-145); Triglycerides 255 mg/dL (< 150)
[2024-04-28 09:59] LABS: Bilirubin, Total 0.4 mg/dL (0.2-1.0); Total Protein 5.6 g/dL (5.7-8.2)
[2024-04-28 13:17] LABS: Folate (Folic Acid) > 24.00 ng/mL (>5.38)
== END | disposition home or self-care (01) ==
LOC: LAB 08:46
DX: E11.40 Type 2 diabetes mellitus with diabetic neuropathy, unspecified (principal); E78.5 Hyperlipidemia, unspecified
CPT/HCPCS: 36415; 80053; 80061; 82306; 82607; 82746; 83036; 84443; 85025

== ENCOUNTER → 2024-05-12 | Outpatient (CLI) | payer MEDICAID ==
[2024-05-12 12:57] LABS: Urine Bacteria FEW /hpf (None Seen); Urine Blood Negative /uL (Negative); Urine Clarity Turbid (Clear); Urine Color Colorless (Yellow); Urine Protein, UAD TRACE (Negative); Urine Specific Gravity 1.013 (1.001-1.035); Urine Urobilinogen Normal (Negative); Urine WBC 8 /hpf (0 - 5)
[2024-05-12 13:19] LABS: Creatinine, Urine 71.81 mg/dL (30.0-125.0)
== END | disposition home or self-care (01) ==
LOC: LAB 12:17
DX: Z12.11 Encounter for screening for malignant neoplasm of colon (principal); E11.40 Type 2 diabetes mellitus with diabetic neuropathy, unspecified; E78.5 Hyperlipidemia, unspecified
CPT/HCPCS: 36415; 81001; 82043; 82274; 82570

== ENCOUNTER 2024-12-06 11:43 | Inpatient (IN) | payer MEDICAID, SELFPAY ==
[~2024-12-06] VITALS: Ht 154.9 cm; Wt 59.0 kg
--- NOTE | 2024-12-06 12:02 | ECG ---
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
--- NOTE | 2024-12-06 12:16 | ED.PDOC ---
HPI (NEURO) HPI Comments 54 y/o F presents with friend for c/o difficulty coming-up with words and headache for the past 2 days. Report having an unwitnessed fall and injuring her tongue, the other day. No lost of consciousness then or additional injuries then. Denies any weakness, dizziness, vision or speech changes, or further associated symptoms. Dagoberto: stroke like HPI: Poor Historian. ONSET OF SYMPTOMS AT LEAST TWO DAYS AGO. Vitals: temperature of 98.0F, pulse of 89, respiratory rate of 18, blood pressure of 221/99, SpO2 of 98%RA Past Medical History: anxiety, DM. HLD, HTN Past Surgical History: cholecystectomy REVIEW OF SYSTEMS: CONSTITUTIONAL: Denies acute: fever, diaphoresis, chills, generalized weakness. HEAD: Denies acute: , photophobia Eyes: Denies acute: Double vision, vision loss, eye pain, eye discharge. EARS: Denies acute: tinnitus, hearing loss, ear discharge, ear pain, THROAT: Denies acute: sore throat, swelling, difficulty swallowing , pain with swallowing, change in voice. NECK: Denies acute: neck pain, neck swelling, stiff neck. HEART: Denies acute : chest pain, palpitations, LUNGS: Denies acute: SOB, wheezing, cough, hemoptysis ABDOMEN: Denies acute: abdominal pain, Nausea, Vomiting, diarrhea, melena , hematemesis, hematochezia SKIN: Denies acute: rash, redness, lesions, itchiness. EXTREMITIES: Denies acute: calf pain, numbness, tingling, weakness, denies pain in extremity. Denies acute: Low back pain. Neuro: Denies acute: tremors, seizure like activity, loss of bowel or bladder function, cauda equina like symptoms. : Denies acute: dysuria, hematuria, flank pain, increase in urinary frequency. PSYCH: Denies acute: hallucination, suicidal ideation, homicidal ideation. FEMALE: Denies acute: abnormal vaginal bleeding, foul odor, unusual discharge. PHYSICAL EXAM: General: ----[id number]----acute distress, awake and alert. Head: normocephalic, atraumatic. Neck: supple, trachea is midline, no swelling. Throat: Normal phonation. Noted right-sided tip of the tongue hematoma. When asked who said that she fell two days ago. Eyes:, no erythema, no purulent discharge, no proptosis, no icterus. Heart: regular rate, regular rhythm, no significant murmur appreciated. Lungs: no apparent respiratory distress, No wheezing, no rhonchi, no crackles. No stridors Clear to auscultation bilaterally. Abdomen: non tender to palpation, non distended, soft, no guarding, no rebound, + bowel sounds. Neuro: Awake, Alert, oriented to name, self, situation, follows commands GCS=15. Having difficulty coming up with the words. Speech is somewhat slurred. Skin: no petechia, no purpura, no cyanosis, non-pale, not jaundice. Lower extremities: --no - Pitting edema no deformity, no focal swelling, no calf TTP. Makes eye contact. moves all four extremities. Face: no apparent facial droop. Ambulating in the ED independently. Able to raise bilateral lower extremity against resistance and holding. Stroke: finger to nose cerebellar testing sluggish on right upper extremity No pronator drift. PERRLA, EOM-I CN 2-12 are grossly intact, No nystagmus. No nuchal rigidity, Kernig's sign, Brudzinski's sign, no meningeal signs. 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 Was a procedure done?: No Differential Diagnosis (SZ) CVA: Huerta's Palsy, CVA, Delirium Tremens, DKA, Drug Overdose, Electrolyte Imbalance, Encephalopathy, Hypoglycemia, Hypoxemia, Mass Lesion, Respiratory Failure, SAH, TIA, Other (Stroke: DDX include TIA, TGA, CVA, intracranial bleed/mass/infection, cerebellar ischemia/infarct, carotid stenosis, lacunar inf arct, vertebral/carotid artery dissection,, vertebrobasillary insufficiency, BPV, encephalopathy, electrolyte abnormality, thyroid disease, hydrocephalus, Huerta�s palsy, multiple sclerosis, hypoglycemia, drug toxicity, cardiac arrhythmia, ella�s paralysis, seizure.) X-Ray, Labs, Meds, VS Vital Signs Date Time Temp Pulse Resp B/P (MAP) Pulse Ox O2 Delivery O2 Flow Rate FiO2 12/06/24 13:39 89 14 96 Room Air* 0 21 12/06/24 13:39 80 12/06/24 13:12 85 12/06/24 13:12 98.7 85 16 137/74 (95) 98 98.7 12/06/24 13:08 85 137/74 12/06/24 12:00 80 12/06/24 11:55 98.0 89 18 221/99 (139) 98 98.0 Lab Test 12/06/24 15:27 12/06/24 13:11 12/06/24 13:10 12/06/24 12:12 Range/Units Troponin I High Sensitivity 3 L < 3 L < 3 L </=34 ng/L Urine Color Light-yellow Yellow Urine Clarity Clear Clear Urine pH 6.0 5.0-9.0 Urine Specific [place] 1.015 1.001-1.035 Urine Protein 1+ H Negative Urine Ketones Negative Negative Urine Blood Negative Negative /uL Urine Nitrite Negative Negative Urine Bilirubin Negative Negative Urine Urobilinogen Normal Negative mg/dL Urine Leukocyte Esterase Negative Negative /uL Urine RBC 3 0 - 4 /hpf Urine Microscopic WBC 1 0-5 /HPF Urine Squamous Epithelial Cells Mod <5 /hpf Urine Bacteria Few H None Seen /hpf Urine Glucose 4+ H Normal mg/dL Urine Opiates Screen Neg NEGATIVE Urine Fentanyl Screen Neg NEGATIVE Urine Barbiturates Screen Neg NEGATIVE Urine Phencyclidine Screen Neg NEGATIVE Urine Amphetamines Screen Neg NEGATIVE Urine Benzodiazepines Screen Neg NEGATIVE Urine Cocaine Screen Neg NEGATIVE Urine Cannabinoids Screen Neg NEGATIVE White Blood Count 7.1 4.4-10.8 10^3/uL Red Blood Count 3.96 L 4.0-5.20 10^6/uL Hemoglobin 11.7 L 12.2-16.2 g/dL Hematocrit 34.7 L 36.0-46.0 % Mean Corpuscular Volume 87.7 80.0-100.0 fL Mean Corpuscular Hemoglobin 29.7 28.0-32.0 pg Mean Corpuscular Hemoglobin Concent 33.8 32.0-36.0 g/dL Red Cell Distribution Width 14.0 11.8-14.3 % Platelet Count 239 140-450 10^3/uL Mean Platelet Volume 8.4 6.9-10.8 fL Neutrophils (%) (Auto) 51.7 37.0-80.0 % Lymphocytes (%) (Auto) 37.5 10.0-50.0 % Monocytes (%) (Auto) 6.6 0.0-12.0 % Eosinophils (%) (Auto) 3.6 0.0-7.0 % Basophils (%) (Auto) 0.6 0.0-2.0 % Neutrophils # (Auto) 3.7 1.6-8.6 10 ^3/uL Lymphocytes # (Auto) 2.7 0.4-5.4 10 ^3/uL Monocytes # (Auto) 0.5 0-1.3 10 ^3/uL Eosinophils # (Auto) 0.3 0-0.8 10 ^3/uL Basophils # (Auto) 0 0-0.2 10 ^3/uL Nucleated Red Blood Cells 0.0 % Prothrombin Time 9.7 9.3-11.8 sec Prothrombin Time INR 0.91 0.9-1.15 Activated Partial Thromboplast Time 23.1 L 24.5-34.5 SEC Sodium Level 141 136-145 mmol/L Potassium Level 4.6 3.5-5.1 mmol/L Chloride Level 107 98-107 mmol/L Carbon Dioxide Level 25 20-31 mmol/L Anion Gap 9 5-15 Blood Urea Nitrogen 20 9-23 mg/dL Creatinine 0.91 0.550-1.02 mg/dL Glomerular Filtration Rate Calc 75 >90 mL/min BUN/Creatinine Ratio 22.0 H 10.0-20.0 Serum Glucose 334 H 74-106 mg/dL Lactic Acid Level 1.9 0.4-2.0 mmol/L Calcium Level 10.3 8.7-10.4 mg/dL Magnesium Level 2.0 1.6-2.6 mg/dL Total Bilirubin 0.3 0.2-1.0 mg/dL Aspartate Amino Transferase (AST) 12 L 13-40 U/L Alanine Aminotransferase (ALT) 14 7-40 U/L Alkaline Phosphatase 115 46-116 U/L B-Type Natriuretic Peptide 54.70 0-100 pg/mL Total Protein 7.1 5.7-8.2 g/dL Albumin 4.3 3.2-4.8 g/dL Current Medications Medications (Trade) Dose Ordered Sig/Ade Route Start Time Stop Time Status Last Admin Aspirin (Ecotrin Enteric Coated Tablet) 325 mg ONCE ONCE PO 12/06/24 13:30 12/06/24 13:31 DC 12/06/24 13:45 Ceftriaxone Sodium 50 ml @ 100 mls/hr ONCE ONCE IV 12/06/24 16:30 12/06/24 16:59 DC 12/06/24 19:04 [place] [address] Ph: [phone] DIAGNOSTIC IMAGING Diagnostic Imaging Report : [id number] Signed PATIENT: TEA BERRY ACCT: [id number] UNIT: [id number] : 1970 LOC: ER ROOM / BED: / AGE / SEX: 54 / F ADM STATUS: REG ER SERVICE 1157 ORDERING PHYSICIAN: BONY ARAMBULA DO PROCEDURE(s): HWOCT - HEAD WITHOUT CONTRAST REASON: HTN, SLURRED SPEECH, JASSO, R ARM WEAKNESS ORDER NUMBER(s): [id number], ACCESSION NUMBER(s): [id number] EXAM: CT HEAD WITHOUT CONTRAST INDICATION: HTN, SLURRED SPEECH, JASSO, R ARM WEAKNESS TECHNIQUE: CT of the head without intravenous contrast. Radiation Dose : 1. Head: CT Dose: CTDI volume is 53.43 mGy. Dose-length product is 946.16 mGy*cm The dose indicators for CT are the volume Computed Tomography (CT) Dose Index (CTDIvol) and the Dose Length Product (DLP), and are measured in units of mGy and mGy-cm, respectively. These indicators are not patient dose, but values generated from the CT scanner acquisition factors. The report includes radiation exposure data for exposures received during this examination. COMPARISON: None FINDINGS: There is no evidence of acute intracranial hemorrhage, extra-axial collection, mass effect, midline shift, herniation or hydrocephalus. The ventricles, sulci and cisterns are age appropriate. The aguilera-white differentiation is intact. Patchy periventricular and subcortical white matter hypoattenuation is nonspecific but may be related to small vessel ischemic disease. The visualized paranasal sinuses and mastoid air cells are clear. The surrounding soft tissues and osseous structures are unremarkable. IMPRESSION: 1. No acute intracranial abnormality. Radiation optimization: All CT scans at this facility use at least one of these dose optimization techniques: automated exposure control mA and/or kV adjustment per patient size (includes targeted exams where dose is matched to clinical indication) or iterative reconstruction. ATED BY: DAPHNIE PAGE MD DICTATED DATE/TIME: 12/06/24 1232 SIGNED BY: DAPHNIE PAGE MD SIGNED DATE/TIME: 12/06/24 123 CC: [place] [address] Ph: [phone] DIAGNOSTIC IMAGING Diagnostic Imaging Report : [id number] Signed PATIENT: TEA BERRY ACCT: [id number] UNIT: [id number] : 1970 LOC: ER ROOM / BED: / AGE / SEX: 54 / F ADM STATUS: REG ER SERVICE 1157 ORDERING PHYSICIAN: BONY ARAMBULA DO PROCEDURE(s): CXRP - CHEST PORTABLE REASON: HTN, SLURRED SPEECH, JASSO, R ARM WEAKNESS ORDER NUMBER(s): [id number], ACCESSION NUMBER(s): [id number] CHEST RADIOGRAPH Indication: HTN, SLURRED SPEECH, JASSO, R ARM WEAKNESS Technique: Single frontal view of the chest was obtained COMPARISON: None FINDINGS: Lines and Tubes: None Lungs: Clear Pleura: No effusion. No pneumothorax. Cardiomediastinal contours: Unremarkable Bones: Unremarkable IMPRESSION: 1. No acute disease. Patient is status post cholecystectomy ATED BY: DAPHNIE PAGE MD DICTATED DATE/TIME: 12/06/248 SIGNED BY: DAPHNIE PAGE MD SIGNED DATE/TIME: 12/06/241227 CC: Time of 1ST Reevaluation: 12:27 Reevaluation 1ST: Unchanged Patient Education/Counseling: Diagnosis, Treatment Family Education/Counseling: Diagnosis, Treatment Comments Patient presented with the above HPI.--seizure-like symptoms and hypertensive ur gency----workup was initiated. patient was found with the above mentioned diagnosis. the following medications were ordered: please refer to order lists of meds and tests obtained by myself Dr. Arambula. Patient ED course and VS have been stabilized. Patient has been reassessed in the ED and remained in a stable condition. Pertinent incidental findings were discussed with the patient and/or family. Patient/family voices understanding and is agreeable with plan. Patient has been observed in the ED adequate length of time to insure improvement/stability. Escalation of care considered: Consideration of escalation to observation or admission Patient was ADMITTED to the medicine team for further evaluation and treatment of their presentation. All the reports of any imaging studies that were ordered by myself were reviewed by myself. Departure 1 Departure Time of Disposition: 12:33 Impression: Primary Impression: Stroke-like symptoms Additional Impression: Hypertensive urgency Disposition: ADMITTED INPATIENT Admit to: Tele Condition: Guarded Discharged With: Self Critical Care Note Critical Care Time?: Yes (55 min-critical care time only) I personally scribed for BONY ARAMBULA DO ([email or web address]) on 12/06/24 at 12:16. Electronically submitted by Rick Leavitt ([email or web address]). I personally scribed for BONY ARAMBULA DO ([email or web address]) on 12/06/24 at 13:39. Electronically submitted by Rick Leavitt ([email or web address]). BONY ARAMBULA DO December 06, 2024 12:16
[2024-12-06 12:30] LABS: Basophils # (auto) 0 10 ^3/uL (0-0.2); Basophils % (auto) 0.6 % (0.0-2.0); Eosinophils # (auto) 0.3 10 ^3/uL (0-0.8); Eosinophils % (auto) 3.6 % (0.0-7.0); Hematocrit 34.7 % (36.0-46.0); Hemoglobin 11.7 g/dL (12.2-16.2); Lymphocytes # (auto) 2.7 10 ^3/uL (0.4-5.4); Lymphocytes % (auto) 37.5 % (10.0-50.0); Mean Corpuscular Hemoglobin 29.7 pg (28.0-32.0); Mean Corpuscular Hgb Conc. 33.8 g/dL (32.0-36.0); Mean Corpuscular Volume 87.7 fL (80.0-100.0); Monocytes # (auto) 0.5 10 ^3/uL (0-1.3); Monocytes % (auto) 6.6 % (0.0-12.0); Neutrophils # (auto) 3.7 10 ^3/uL (1.6-8.6); Neutrophils % (auto) 51.7 % (37.0-80.0); Platelet Count (auto) 239 10^3/uL (140-450); Red Blood Cells 3.96 10^6/uL (4.0-5.20); White Blood Cell 7.1 10^3/uL (4.4-10.8)
--- NOTE | 2024-12-06 12:31 | DVH ---
CHEST RADIOGRAPH Indication: HTN, SLURRED SPEECH, JASSO, R ARM WEAKNESS Technique: Single frontal view of the chest was obtained COMPARISON: None FINDINGS: Lines and Tubes: None Lungs: Clear Pleura: No effusion. No pneumothorax. Cardiomediastinal contours: Unremarkable Bones: Unremarkable IMPRESSION: 1. No acute disease. Patient is status post cholecystectomy
--- NOTE | 2024-12-06 12:34 | DVH ---
EXAM: CT HEAD WITHOUT CONTRAST INDICATION: HTN, SLURRED SPEECH, JASSO, R ARM WEAKNESS TECHNIQUE: CT of the head without intravenous contrast. Radiation Dose : 1. Head: CT Dose: CTDI volume is 53.43 mGy. Dose-length product is 946.16 mGy*cm The dose indicators for CT are the volume Computed Tomography (CT) Dose Index (CTDIvol) and the Dose Length Product (DLP), and are measured in units of mGy and mGy-cm, respectively. These indicators are not patient dose, but values generated from the CT scanner acquisition factors. The report includes radiation exposure data for exposures received during this examination. COMPARISON: None FINDINGS: There is no evidence of acute intracranial hemorrhage, extra-axial collection, mass effect, midline s hift, herniation or hydrocephalus. The ventricles, sulci and cisterns are age appropriate. The aguilera-white differentiation is intact. Patchy periventricular and subcortical white matter hypoattenuation is nonspecific but may be related to small vessel ischemic disease. The visualized paranasal sinuses and mastoid air cells are clear. The surrounding soft tissues and osseous structures are unremarkable. IMPRESSION: 1. No acute intracranial abnormality. Radiation optimization: All CT scans at this facility use at least one of these dose optimization rusty hniques: automated exposure control mA and/or kV adjustment per patient size (includes targeted exam s where dose is matched to clinical indication) or iterative reconstruction.
[2024-12-06 12:46] LABS: INR 0.91 (0.9-1.15); Partial Thromboplastin Time 23.1 SEC (24.5-34.5); Prothrombin Time 9.7 sec (9.3-11.8)
[2024-12-06 12:48] LABS: Alanine Aminotransferase 14 U/L (7-40); Albumin 4.3 g/dL (3.2-4.8); Alkaline Phosphatase 115 U/L (46-116); Anion Gap 9 (5-15); Blood Urea Nitrogen 20 mg/dL (9-23); Calcium 10.3 mg/dL (8.7-10.4); Carbon Dioxide 25 mmol/L (20-31); Chloride 107 mmol/L (98-107); Potassium 4.6 mmol/L (3.5-5.1); Sodium 141 mmol/L (136-145); Total Protein 7.1 g/dL (5.7-8.2)
[2024-12-06 12:50] LABS: Aspartate Aminotransferase 12 U/L (13-40); Bilirubin, Total 0.3 mg/dL (0.2-1.0); Glucose 334 mg/dL (74-106)
[2024-12-06] MEDS: LABETALOL HCL 20 MG/4 ML VL IV ONE (13:08)
[2024-12-06 13:31] LABS: Urine Bacteria FEW /hpf (None Seen); Urine Blood Negative /uL (Negative); Urine Clarity Clear (Clear); Urine Protein, UAD 1+ (Negative); Urine Specific Gravity 1.015 (1.001-1.035); Urine Squamous Epithelial Cell MOD /hpf (<5); Urine Urobilinogen Normal (Negative); Urine WBC 1 /HPF (0-5)
[2024-12-06 13:32] LABS: Urine Color Light-Yellow (Yellow)
[2024-12-06 13:36] LABS: Amphetamine Screen, Urine Neg (NEGATIVE); Barbiturate Scree,Urine Neg (NEGATIVE); Benzodiazephine Screen, Urine Neg (NEGATIVE); Cannabinoid Screen, Urine Neg (NEGATIVE); Cocaine Screen, Urine Neg (NEGATIVE); Opiate Scree,Urine Neg (NEGATIVE); Phencyclidine Screen, Urine Neg (NEGATIVE)
[2024-12-06 13:39] VITALS: PULSE 89; RESP 14; O2SAT 96
[2024-12-06] MEDS: ASPirin-EC 325mg tab PO ONE (13:45)
[2024-12-06] MEDS ORDERED: DEXTROSE (50%) 50ML SYRG IV PRN (18:00)
[2024-12-06] MEDS ORDERED: NITROGLYCERIN 0.4 MG SL TAB SL PRN (18:00)
[2024-12-06] MEDS ORDERED: ACETAMINOPHEN 325 MG TAB PO PRN (18:00)
[2024-12-06] MEDS ORDERED: MORPHINE SULFATE INJ 2 MG/ml SYRG IV PRN (18:00)
--- NOTE | 2024-12-06 18:36 | DVHHP2 ---
History of Present Illness Reason for Visit: TIA versus CVA History of Present Illness This is a 54-year-old female with history of type 2 DM, hypertension, hyperlipidemia, anxiety who presents to ED with chief complaint of aphasia associated with headache x2 days. Reports having an unwitnessed fall and injuring her tongue the other day without loss of consciousness or additional injuries. Upon evaluating the patient, alert oriented x4, facial symmetry, negative facial droop, is equal in strength to upper and lower extremities but aphasia is present. The patient denied recent injury or trauma but does state increased life stressors. The patient states that two days ago she had uncontrollable movements to her right arm, currently not present. The patient is concerned about her symptoms and would like to be further evaluated and treated. The patient will be admitted under hospitalist care to the telemetry unit for continuous monitoring and treatment. The patient denies pain, dizziness, blurred vision, fever, chills, headache, shortness of breath, chest pain, nausea, vomiting, abdominal pain, diarrhea, constipation and other associated symptoms. The plan has been discussed with the patient in which all questions concerns have been addressed Cardiovascular: HTN, hyperipidemia Psych: Anxiety Endocrine: Diabetes Past Surgical History: Cholecystectomy Family History: None Smoke: No ALCOHOL: none Drugs: None Lives: with Family Domestic Violence: Neg Review of Systems Constitutional: Yes: Weakness Neurological: Change in speech, Other (Headache) Allergies: Coded Allergies: NO KNOWN ALLERGIES (Unverified , 07/30/16) Medications Current Medications Medications Dose Ordered Sig/Ade Route Start Time Stop Time Status Last Admin Dose Admin Acetaminophen/ Hydrocodone Bitart 1 tab Q4HP PRN PO 12/06/24 18:00 Ondansetron HCl 4 mg Q4HP PRN IV 12/06/24 18:00 Enoxaparin Sodium 40 mg DAILY SC 12/07/24 10:00 Acetaminophen 650 mg Q6HP PRN PO 12/06/24 18:00 Nitroglycerin 0.4 mg Q5MINP PRN SL 12/06/24 18:00 Morphine Sulfate 2 mg Q30M PRN IV 12/06/24 18:00 Diagnostic Test (Pha) 1 strip ACHS 12/06/24 22:00 Insulin Human Regular ACHS SC 12/06/24 22:00 Dextrose 50 ml UD PRN IV 12/06/24 18:00 Hydralazine HCl 10 mg Q6HP PRN IV 12/06/24 18:00 Amlodipine Besylate 5 mg DAILY PO 12/07/24 10:00 Aspirin 81 mg DAILY PO 12/07/24 10:00 Atorvastatin Calcium 40 mg HS PO 12/06/24 22:00 Enalapril Maleate 10 mg Q12HR PO 12/06/24 22:00 Gabapentin 100 mg TID PO 12/06/24 22:00 Cholecalciferol 2,000 unit DAILY PO 12/07/24 10:00 Pantoprazole Sodium 40 mg DAILY PO 12/07/24 10:00 Exam Vital Signs Vital Signs Date Time Temp Pulse Resp B/P (MAP) Pulse Ox O2 Delivery O2 Flow Rate FiO2 12/06/24 13:39 89 14 96 Room Air* 0 21 12/06/24 13:12 98.7 137/74 (95) 98.7 General Appearance: Alert, Oriented X3, Cooperative, No acute distress HEENT: Atraumatic, PERRLA, EOMI, Mucous membr. moist/pink Respiratory: Clear to auscultation, Normal air movement Cardiovascular: Regular rate, Normal S1, Normal S2, No murmurs Abdominal: Normal bowel sounds, Soft, No tenderness, No hepatospenomegaly, No masses Extremities: No clubbing, No cyanosis, No edema, Normal pulses, No tenderness/swelling Skin: No rashes, No breakdown Neuro: Normal gait, Strength at 5/5 X4 ext, Normal tone, Sensation intact, Cranial nerves 3-12 NL, Reflexes 2+ Psych/Mental Status: Mental status NL Labs/Xrays Labs Test 12/06/24 15:27 12/06/24 13:11 12/06/24 12:12 Range/Units Troponin I High Sensitivity 3 L </=34 ng/L Urine Color Light-yellow Yellow Urine Clarity Clear Clear Urine pH 6.0 5.0-9.0 Urine Specific [place] 1.015 1.001-1.035 Urine Protein 1+ H Negative Urine Ketones Negative Negative Urine Blood Negative Negative /uL Urine Nitrite Negative Negative Urine Bilirubin Negative Negative Urine Urobilinogen Normal Negative mg/dL Urine Leukocyte Esterase Negative Negative /uL Urine RBC 3 0 - 4 /hpf Urine Microscopic WBC 1 0-5 /HPF Urine Squamous Epithelial Cells Mod <5 /hpf Urine Bacteria Few H None Seen /hpf Urine Glucose 4+ H Normal mg/dL Urine Opiates Screen Neg NEGATIVE Urine Fentanyl Screen Neg NEGATIVE Urine Barbiturates Screen Neg NEGATIVE Urine Phencyclidine Screen Neg NEGATIVE Urine Amphetamines Screen Neg NEGATIVE Urine Benzodiazepines Screen Neg NEGATIVE Urine Cocaine Screen Neg NEGATIVE Urine Cannabinoids Screen Neg NEGATIVE White Blood Count 7.1 4.4-10.8 10^3/uL Red Blood Count 3.96 L 4.0-5.20 10^6/uL Hemoglobin 11.7 L 12.2-16.2 g/dL Hematocrit 34.7 L 36.0-46.0 % Mean Corpuscular Volume 87.7 80.0-100.0 fL Mean Corpuscular Hemoglobin 29.7 28.0-32.0 pg Mean Corpuscular Hemoglobin Concent 33.8 32.0-36.0 g/dL Red Cell Distribution Width 14.0 11.8-14.3 % Platelet Count 239 140-450 10^3/uL Mean Platelet Volume 8.4 6.9-10.8 fL Neutrophils (%) (Auto) 51.7 37.0-80.0 % Lymphocytes (%) (Auto) 37.5 10.0-50.0 % Monocytes (%) (Auto) 6.6 0.0-12.0 % Eosinophils (%) (Auto) 3.6 0.0-7.0 % Basophils (%) (Auto) 0.6 0.0-2.0 % Neutrophils # (Auto) 3.7 1.6-8.6 10 ^3/uL Lymphocytes # (Auto) 2.7 0.4-5.4 10 ^3/uL Monocytes # (Auto) 0.5 0-1.3 10 ^3/uL Eosinophils # (Auto) 0.3 0-0.8 10 ^3/uL Basophils # (Auto) 0 0-0.2 10 ^3/uL Nucleated Red Blood Cells 0.0 % Prothrombin Time 9.7 9.3-11.8 sec Prothrombin Time INR 0.91 0.9-1.15 Activated Partial Thromboplast Time 23.1 L 24.5-34.5 SEC Sodium Level 141 136-145 mmol/L Potassium Level 4.6 3.5-5.1 mmol/L Chloride Level 107 98-107 mmol/L Carbon Dioxide Level 25 20-31 mmol/L Anion Gap 9 5-15 Blood Urea Nitrogen 20 9-23 mg/dL Creatinine 0.91 0.550-1.02 mg/dL Glomerular Filtration Rate Calc 75 >90 mL/min BUN/Creatinine Ratio 22.0 H 10.0-20.0 Serum Glucose 334 H 74-106 mg/dL Lactic Acid Level 1.9 0.4-2.0 mmol/L Calcium Level 10.3 8.7-10.4 mg/dL Magnesium Level 2.0 1.6-2.6 mg/dL Total Bilirubin 0.3 0.2-1.0 mg/dL Aspartate Amino Transferase (AST) 12 L 13-40 U/L Alanine Aminotransferase (ALT) 14 7-40 U/L Alkaline Phosphatase 115 46-116 U/L B-Type Natriuretic Peptide 54.70 0-100 pg/mL Total Protein 7.1 5.7-8.2 g/dL Albumin 4.3 3.2-4.8 g/dL ORDERING PHYSICIAN: BONY ARAMBULA DO PROCEDURE(s): HWOCT - HEAD WITHOUT CONTRAST REASON: HTN, SLURRED SPEECH, JASSO, R ARM WEAKNESS ORDER NUMBER(s): [id number], ACCESSION NUMBER(s): [id number] EXAM: CT HEAD WITHOUT CONTRAST INDICATION: HTN, SLURRED SPEECH, JASSO, R ARM WEAKNESS TECHNIQUE: CT of the head without intravenous contrast. Radiation Dose : 1. Head: CT Dose: CTDI volume is 53.43 mGy. Dose-length product is 946.16 mGy*cm The dose indicators for CT are the volume Computed Tomography (CT) Dose Index (CTDIvol) and the Dose Length Product (DLP), and are measured in units of mGy and mGy-cm, respectively. These indicators are not patient dose, but values generated from the CT scanner acquisition factors. The report includes radiation exposure data for exposures received during this examination. COMPARISON: None FINDINGS: There is no evidence of acute intracranial hemorrhage, extra-axial collection, mass effect, midline shift, herniation or hydrocephalus. The ventricles, sulci and cisterns are age appropriate. The aguilera-white differentiation is intact. Patchy periventricular and subcortical white matter hypoattenuation is nonspecific but may be related to small vessel ischemic disease. The visualized paranasal sinuses and mastoid air cells are clear. The surrounding soft tissues and osseous structures are unremarkable. IMPRESSION: 1. No acute intracranial abnormality. Radiation optimization: All CT scans at this facility use at least one of these dose optimization techniques: automated exposure control mA and/or kV adjustment per patient size (includes targeted exams where dose is matched to clinical indication) or iterative reconstruction. ATED BY: DAPHNIE PAGE MD DICTATED DATE/TIME: 12/06/24 1232 SIGNED BY: DAPHNIE PAGE MD SIGNED DATE/TIME: 12/06/24 1232 CC: ORDERING PHYSICIAN: BONY ARAMBULA DO PROCEDURE(s): CXRP - CHEST PORTABLE REASON: HTN, SLURRED SPEECH, JASSO, R ARM WEAKNESS ORDER NUMBER(s): [id number], ACCESSION NUMBER(s): [id number] CHEST RADIOGRAPH Indication: HTN, SLURRED SPEECH, JASSO, R ARM WEAKNESS Technique: Single frontal view of the chest was obtained COMPARISON: None FINDINGS: Lines and Tubes: None Lungs: Clear Pleura: No effusion. No pneumothorax. Cardiomediastinal contours: Unremarkable Bones: Unremarkable IMPRESSION: 1. No acute disease. Patient is status post cholecystectomy ATED BY: DAPHNIE PAGE MD DICTATED DATE/TIME: 12/06/24 1228 SIGNED BY: DAPHNIE PAGE MD SIGNED DATE/TIME: 12/06/24 1228 CC: Assessment/Plan Assessment/Plan TIA versus CVA--patient presents to ED with chief complaint of aphasia associated with headache x2 days Patient had unwitnessed fall and injuring her tongue the other day without loss of consciousness or hitting her head Patient comments uncontrollable right arm movements about three months ago currently stopped Upon evaluation alert oriented x4, facial symmetry, negative facial droop, equal strength upper and lower extremity, aphasia is present Admit to telemetry unit for continuous monitoring Reviewed CBC which is normal Cardiac enzyme negative x3 UDS is negative Reviewed BMP BG 334 Lactic acid 1.9 which is normal Coags are normal Urinalysis is negative for infection Reviewed CT head which is negative for abnormalities Reviewed chest x-ray which is negative Neuro consult has been initiated by ER physician PT maribel Speech therapist Aspirin daily Type 2 DM --uncontrolled Hold home antidiabetic medications Regular insulin mild SS a.c. and HS Accu-Cheks per protocol 1800 ADA diet Continue to monitor Hypertension-uncontrolled Elevated BP 221/99 Continue all antihypertensive agents Hydralazine 10 mg IV push q.6 p.r.n. SBP greater than 160 mmHg Continue to monitor Hyperlipidemia Continue statin as prescribed Reconcile home medication DVT prophylaxis PUD prophylaxis not indicated no history of GERD Labs in a.m. Discussed plan of care with the patient in which all questions concerns have been addressed Plan discussed with: Patient My Orders Orders - MARIBELLMAGALIEVANITA Avery Angie [employer] Procedure Category Date Status Time Admit ADMIT 12/06/24 Transmitted 17:55 2 Gm Sodium Diet DIET 12/06/24 Transmitted Dinner Hydrocodone-Acet PHA 12/06/24 In Process 5/325mg Tab ([place] 18:00 Ondansetron Hcl PHA 12/06/24 In Process (Zofran) 18:00 Enoxaparin Sodium PHA 12/07/24 In Process (Lovenox) 10:00 Complete Blood Count LAB 12/07/24 Verified 04:00 Comprehensive LAB 12/07/24 Verified Metabolic Panel 04:00 Pt Request For Service PT 12/06/24 Logged 17:55 Carotid Duplx W Color US 12/06/24 Logged DOP 17:55 Condition: Fair APRIL 12/06/24 In Process 17:55 Acetaminophen Tablet PHA 12/06/24 In Process (Tylenol Tablet) 18:00 Bedrest With Bathroom APRIL 12/06/24 In Process Privileg 17:55 Nitroglycerin PHA 12/06/24 In Process Sublingual (Ntrostat 18:00 Morphine Sulfate PHA 12/06/24 In Process Injection 18:00 Stat Ekg For Chest APRIL 12/06/24 In Process Pain 17:55 Notify Of Changes APRIL 12/06/24 In Process From Base 17:55 Insurance Claims Processor For APRIL 12/06/24 In Process 24 Hours 17:55 Emergency Dysrhythmia APRIL 12/06/24 In Process Protocol 17:55 Rhythm Strips Once APRIL 12/06/24 In Process Every Shift 17:55 Oxygen By Nasal RT 12/06/24 Transmitted Cannula 17:55 Glucose Blood PHA 12/06/24 In Process (Accu-Chek Comfort 22:00 Insulin R (Human) PHA 12/06/24 In Process (Insulin R) 22:00 Dextrose 50% Syringe PHA 12/06/24 In Process 18:00 Hydralazine Injection PHA 12/06/24 In Process (Apresoline Inject 18:00 Amlodipine Tablet PHA 12/07/24 In Process (Norvasc Tablet) 10:00 Aspirin Enteric PHA 12/07/24 In Process Coated Tablet 10:00 Atorvastatin (Lipitor) PHA 12/06/24 In Process 22:00 Enalapril Tablet PHA 12/06/24 In Process (Vasotec Tablet) 22:00 Gabapentin Capsule PHA 12/06/24 In Process (Neurontin Capsule) 22:00 Cholecalciferol PHA 12/07/24 In Process Tablet (Vitamin D3 10:00 Pantoprazole Tablet PHA 12/07/24 In Process (Protonix Tablet) 10:[address] 12/06/24 Transmitted 18:25 Date of Service: December 06, 2024 Billing Provider: VANITA STARKEY Common Visit Codes: 49801-[id number] INP/OBS CARE (HIGH) VANITA STARKEY December 06, 2024 18:36
[2024-12-06] MEDS: cefTRIAXone 1GM/50ML D5W 50 ML IV ONE (19:04)
--- NOTE | 2024-12-06 20:21 | DVH ---
Carotid Duplex Date: 12/06/2024 06:06 PM Clinical History: TIA versus CVA Comparison: None Technique: Duplex Doppler evaluation of the extracranial carotid and vertebral arteries including col or Doppler and spectral/pulsed waveform analysis was performed. Findings: RIGHT SIDE: The peak systolic velocities are 120 cm/s in the distal CCA and 114 cm/s in the proximal ICA.The ICA/ CCA ratio is less than 2. The external carotid artery is patent with peak systolic velocity of 128 cm/s proximally. There is appropriate antegrade flow in the right vertebral artery, 80.5 cm/s LEFT SIDE: The peak systolic velocities are 73.6 cm/s in the distal CCA and 147.6 cm/s in the proximal ICA.. The ICA/CCA ratio is less than 2. The external carotid artery is patent with peak systolic velocity of 100.3 cm/s proximally. There is appropriate antegrade flow in the left vertebral artery, 99.3 cm/s IMPRESSION: 1. No hemodynamically significant stenosis noted in the right carotid system. 2. Internal carotid artery on the left demonstrates stump flow ". Velocities is low is 15.6 cm/sec. This suggests distal intracranial obstruction. CT head 10/2024 was negative. There is acute angula ajay pathway in the distal internal carotid which May create slowing of blood flow recommend further e valuation. 3. Reference: Radiology 2003; 229:340-346
[2024-12-06] MEDS: hydrALAZINE HCL 20 MG/ML VL IV PRN (21:55)
[2024-12-06] MEDS: ATORVASTATIN 20 MG TAB PO SCH (21:58)
[2024-12-06] MEDS: GABAPENTIN 100 MG CAP PO SCH (21:58)
[2024-12-06] MEDS: ENALAPRIL MALEATE 10 MG TAB PO SCH (21:59)
[2024-12-06] MEDS: HYDROcodone-ACET 5/325MG TAB PO PRN (21:59)
[2024-12-06] MEDS: ACCU-CHEK COMFORT CURVE STRIP VI SCH (22:00)
[2024-12-06] MEDS: InsuLIN REG 1unit/0.01ml Soln (100units/ml) SC SCH (22:08)
[2024-12-07] VITALS (9 sets, daily range): BP systolic 132–182; BP diastolic 67–84; PULSE 72–93; RESP 16–20; TEMP 97.9–99.2; O2SAT 94–97
[2024-12-07] MEDS ORDERED: GABA-1250 PO (00:13)
[2024-12-07] MEDS ORDERED: HYDR12.55 PO (00:13)
[2024-12-07] MEDS ORDERED: LISI10TA34 PO (00:13)
[2024-12-07] MEDS ORDERED: INSLANTI SC (00:14)
[2024-12-07] MEDS ORDERED: MECL12.586 PO (00:14)
[2024-12-07] MEDS: ONDANSETRON HCL 4 MG/2 ML VIAL IV PRN (05:47)
--- NOTE | 2024-12-07 06:20 | BSKYNEURO ---
[place] Neuro Note # Demographics Consult Type: General Neurology Patient Location: Inpatient First Name: Sammi Last Name: Dagoberto Date of : 1970 Age: 54 Gender: Female Facility: [facility] Time of Initial Page (): 12/07/2024 05:56 Time of Return Call (): 12/07/2024 05:56 # HPI History: 54F reportedly with admission for stroke-like symptoms. Patient reporting trouble speaking, slight headache. Speech trouble began about 3 days ago. 2 months history of involuntary right hand movements that resolved. # Scores Time of exam and NIHSS (): 12/07/2024 06:08 Level of Consciousness 1a: [0] = Alert; keenly responsive LOC Questions 1b: [0] = Answers both questions correctly LOC Commands 1c: [0] = Performs both tasks correctly Best Gaze 2: [0] = Normal Visual 3: [0] = No visual loss Facial Palsy 4: [1] = Minor paralysis Motor Arm Left 5a: [0] = No drift Motor Arm Right 5b: [1] = Drift Motor Leg Left 6a: [0] = No drift Motor Leg Right 6b: [0] = No drift Limb Ataxia 7: [0] = Absent Sensory 8: [1] = Apzw-ud-rxiwmxng sensory loss Best Language 9: [1] = Rrjg-ll-hggmifex aphasia Dysarthria 10: [1] = Llhn-us-aqsfyzmw dysarthria Extinction and Inattention 11: [0] = No abnormality NIHSS Total: 5 VAN Screening: Positive # PMH-FH-SH Medications: - aspirin # Data Head CT: - per radiologist read - no bleed # Assessment Impression: - Ischemic Stroke (Acute) # Plan Thrombolytic/Intervention: NOT IV Thrombolysis or IA Intervention candidate Thrombolytic Exclusion (< 3 hour window): - time of onset unclear Thrombolytic Exclusion: > 4.5 hours Target Blood Pressure: - SBP < 220 - DBP < 120 Imaging: (urgency: STAT): - CT Angiogram Head and CT Angiogram Neck AND call back with results if abnormal Imaging: (urgency: routine): - MRI Brain without contrast Diagnostic Test: - echo with bubble study Medication: - aspirin 81 mg PLUS clopidogrel (Plavix) 75 mg for 21 days, then monotherapy therafter - start statin with goal of LDL < 70 Other: - If patient has any neurological deterioration please call me back immediately - telemetry monitoring - permissive hypertension - LDL < 70 Additional Recommendations: Unable to reach referring provider, recommendations communicated to bedside RN including STAT CTA head/neck. I am unable to determine who the primary physician is or what the contact information for the primary physician is. Disposition: continue admission # Logistics Attestation of consult completion: The patient is located at: [facility]. Facility staff participated in the visit. I performed this telemedicine visit from my offsite office utilizing interactive 2 way audio and visual telecommunication technology. Total time spent in telemedicine encounter: I spent 10 minutes reviewing clinical data and/or imaging, obtaining history, examining the patient, communicating with the onsite care team, and in preparation of this report. # Demographics First Name: Sammi Last Name: Dagoberto Facility: [facility] Yes BRYN PENNINGTON MD December 07, 2024 06:20
[2024-12-07 06:53] LABS: Basophils # (auto) 0 10 ^3/uL (0-0.2); Basophils % (auto) 0.4 % (0.0-2.0); Eosinophils # (auto) 0.1 10 ^3/uL (0-0.8); Eosinophils % (auto) 1.5 % (0.0-7.0); Hematocrit 35.6 % (36.0-46.0); Lymphocytes # (auto) 3.2 10 ^3/uL (0.4-5.4); Lymphocytes % (auto) 36.7 % (10.0-50.0); Mean Corpuscular Hemoglobin 29.6 pg (28.0-32.0); Mean Corpuscular Hgb Conc. 33.8 g/dL (32.0-36.0); Mean Corpuscular Volume 87.6 fL (80.0-100.0); Monocytes # (auto) 0.4 10 ^3/uL (0-1.3); Monocytes % (auto) 5.1 % (0.0-12.0); Neutrophils # (auto) 4.9 10 ^3/uL (1.6-8.6); Neutrophils % (auto) 56.3 % (37.0-80.0); Nucleated Red Blood Cells % 0.1 %; Platelet Count (auto) 242 10^3/uL (140-450); Red Blood Cells 4.07 10^6/uL (4.0-5.20); Red Cell Distribution Width 14.3 % (11.8-14.3); White Blood Cell 8.6 10^3/uL (4.4-10.8)
[2024-12-07 07:15] LABS: Alanine Aminotransferase 12 U/L (7-40); Albumin 4.3 g/dL (3.2-4.8); Alkaline Phosphatase 106 U/L (46-116); Anion Gap 10 (5-15); Aspartate Aminotransferase 13 U/L (13-40); BUN/Creatinine Ratio 25.3 (10.0-20.0); Bilirubin, Total 0.3 mg/dL (0.2-1.0); Blood Urea Nitrogen 20 mg/dL (9-23); Calcium 10.4 mg/dL (8.7-10.4); Carbon Dioxide 25 mmol/L (20-31); Chloride 107 mmol/L (98-107); Glucose 169 mg/dL (74-106); Potassium 4.2 mmol/L (3.5-5.1); Sodium 142 mmol/L (136-145); Total Protein 7.4 g/dL (5.7-8.2)
[2024-12-07] MEDS: PANTOPRAZOLE 40 MG TAB PO SCH (09:24)
[2024-12-07] MEDS: CHOLECALCIFEROL (VITD3) 1,000UNIT=25mCg TAB PO SCH (09:24)
[2024-12-07] MEDS: ENOXAPARIN SOD 40 MG/0.4 ML SYRINGE SC SCH (09:24)
[2024-12-07] MEDS: ASPirin-EC 81 mg tab PO SCH (09:25)
[2024-12-07] MEDS: amLODIPine BESYLATE 5 MG TAB PO SCH (09:25)
[2024-12-07] MEDS ORDERED: PATIENTS OWN MEDICATION (Omeprazole (Gnp Omeprazole) 20 MG) PO SCH (10:00)
[2024-12-07] MEDS ORDERED: IOHEXOL 350 MG/ML 100ML IJ ONE (10:19)
--- NOTE | 2024-12-07 11:18 | DVH ---
CT ANGIO HEAD/Neck INDICATION: cva concern EXAM DATE: 12/07/2024 10:30 AM COMPARISON: 12/06 RADIATION DOSE: CTDIvol: 30.93 mGy, DLP: 1293.42 mGy*cm PROCEDURE: CT angiogram images were obtained of the head and neck. Coronal and sagittal reformatted i mages were created as well as 3D and/or MIP reconstructions. Of note the reconstructions were given o f the noncontrast images. No contrast enhanced reconstructions are seen. All CT scans at this medical facility are performed using dose modulation techniques as appropriate t o a performed exam including the following: Automated exposure control was utilized; adjustment of th e MA and/or KV according to patient size; and use of iterative reconstruction technique. FINDINGS: Head: CT head from 12/06 for further detail. On the CT angiographic images, there is severe stenosis of the left intracranial internal carotid art joanna. The anterior and middle cerebral arteries and their branches appear normal. The anterior communi cating artery appears normal. The right posterior communicating artery is normal. The left posterior communicating artery is not well seen and may be absent or hypoplastic . The vertebral arteries are c odominant . The vertebral, basilar, superior cerebellar, and posterior cerebral arteries are normal i n caliber. No aneurysm, arteriovenous malformation, or is visible. Neck: There is mild narrowing of the left proximal internal carotid artery secondary to atherosclerot ic calcification. The common carotid, internal carotid, external carotid, and vertebral arteries are normal in caliber. The vertebral arteries are codominant . The visualized intracranial arteries are normal. There is no evidence of contrast extravasation, filling defects, stenosis, or dissection. The pharynx and airway are normal. The thyroid, submandibular, and parotid glands appear normal. No l ymphadenopathy is seen. The visualized intracranial structures are unremarkable. 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 However the left MCA and MOR are both patent. No acute abnormal CT angiographic findings of the head and neck.
--- NOTE | 2024-12-07 11:58 | DVH ---
EXAM: MRI BRAIN HEAD WO CONTRAST HISTORY: cva concern TECHNIQUE: Multiplanar and multisequence MR imaging of the head was performed. COMPARISON: CTA head and neck from earlier today FINDINGS: The ventricles and subarachnoid spaces are normal in size and configuration. There are scattered small acute/recent infarcts in the left frontal lobe as well as tiny acute infarc ts in the deep white matter of the left frontal and parietal lobes in a watershed distribution. A few tiny infarcts in the cortical left parietal lobe also seen. There is no midline shift or mass effect. The vascular flow-voids are unremarkable. Trace right mast oid air cell fluid. Minimal mucosal thickening of the ethmoid air cells and the left frontal sinus. T here is a left ocular lens replacement. IMPRESSION: 1. Small acute/recent infarcts in the left frontal lobe and posterior left parietal lobe. There are a few scattered acute small infarcts in the deep left frontal and parietal lobe white matter ( in a watershed distribution). Critical Result: Stroke Findings discussed with VANITA STARKEY at 12/07/2024 11:55 AM, and acknowledged receipt and unders tanding of the findings. ..
[2024-12-07] MEDS: ATORVASTATIN 20 MG TAB PO SCH (12:15)
--- NOTE | 2024-12-07 12:17 | DVHPN2 ---
Reviewed: Care Plan, H&P, Labs, Medications, Previous Orders, Radiology Changes from previous H/P or p: No Changes General: Per HPI Objective Vitals Vital Signs Date Time Temp Pulse Resp B/P (MAP) Pulse Ox O2 Delivery O2 Flow Rate FiO2 12/07/24 09:25 153/75 12/07/24 08:30 98.0 81 16 96 98.0 12/07/24 08:05 Room Air* 0 21 Intake/Output Intake and Output 12/07/24 07:00 Intake Total 300 ml Balance 300 ml Intake Oral 250 ml IV Total 50 ml # Voids 1 General Appearance: Alert, Oriented X3, Cooperative HEENT: Atraumatic Cardiovascular: Regular rate, Normal S1, Normal S2 Abdomen: Normal bowel sounds, Soft Medications Current Medications Medications Dose Ordered Sig/Ade Route Start Time Stop Time Status Last Admin Dose Admin Acetaminophen/ Hydrocodone Bitart 1 tab Q4HP PRN PO 12/06/24 18:00 12/07/24 05:47 1 TAB Ondansetron HCl 4 mg Q4HP PRN IV 12/06/24 18:00 12/07/24 05:47 4 MG Enoxaparin Sodium 40 mg DAILY SC 12/07/24 10:00 12/07/24 09:24 40 MG Acetaminophen 650 mg Q6HP PRN PO 12/06/24 18:00 Nitroglycerin 0.4 mg Q5MINP PRN SL 12/06/24 18:00 Morphine Sulfate 2 mg Q30M PRN IV 12/06/24 18:00 Diagnostic Test (Pha) 1 strip ACHS 12/06/24 22:00 12/07/24 11:52 1 STRIP Insulin Human Regular ACHS SC 12/06/24 22:00 12/07/24 11:52 3 UNITS Dextrose 50 ml UD PRN IV 12/06/24 18:00 Hydralazine HCl 10 mg Q6HP PRN IV 12/06/24 18:00 12/07/24 00:08 10 MG Amlodipine Besylate 5 mg DAILY PO 12/07/24 10:00 12/07/24 09:25 5 MG Aspirin 81 mg DAILY PO 12/07/24 10:00 12/07/24 09:25 81 MG Atorvastatin Calcium 40 mg HS PO 12/06/24 22:00 12/06/24 21:58 40 MG Enalapril Maleate 10 mg Q12HR PO 12/06/24 22:00 12/07/24 09:25 10 MG Gabapentin 100 mg TID PO 12/06/24 22:00 12/07/24 05:46 100 MG Cholecalciferol 2,000 unit DAILY PO 12/07/24 10:00 12/07/24 09:24 2,000 UNIT Pantoprazole Sodium 40 mg DAILY PO 12/07/24 10:00 12/07/24 09:24 40 MG Laboratory Results Laboratory Tests 12/07/24 06:15 Chemistry Test 12/07/24 06:15 Albumin 4.3 g/dL (3.2-4.8) Calcium Level 10.4 mg/dL (8.7-10.4) Total Protein 7.4 g/dL (5.7-8.2) LFT Test 12/07/24 06:15 Alanine Aminotransferase (ALT) 12 U/L (7-40) Alkaline Phosphatase 106 U/L (46-116) Aspartate Amino Transferase (AST) 13 U/L (13-40) Total Bilirubin 0.3 mg/dL (0.2-1.0) Urinalysis Test 12/06/24 13:11 Urine Color Light-yellow (Yellow) Urine Clarity Clear (Clear) Urine pH 6.0 (5.0-9.0) Urine Specific [place] 1.015 (1.001-1.035) Urine Protein 1+ (Negative) H Urine Ketones Negative (Negative) Urine Blood Negative /uL (Negative) Urine Nitrite Negative (Negative) Urine Bilirubin Negative (Negative) Urine Urobilinogen Normal mg/dL (Negative) Urine Leukocyte Esterase Negative /uL (Negative) Urine RBC 3 /hpf (0 - 4) Urine Microscopic WBC 1 /HPF (0-5) Urine Squamous Epithelial Cells Mod /hpf (<5) Urine Bacteria Few /hpf (None Seen) H Urine Glucose 4+ mg/dL (Normal) H Labs and/or images reviewed: Labs reviewed by me, Image(s) reviewed by me Assessment/Plan Assessment/Plan This is a 54-year-old female with history of type 2 DM, hypertension, hyperlipidemia, anxiety who presents to ED with chief complaint of aphasia associated with headache x2 days. Reports having an unwitnessed fall and injuring her tongue the other day without loss of consciousness or additional injuries. Upon evaluating the patient, alert oriented x4, facial symmetry, negative facial droop, is equal in strength to upper and lower extremities but aphasia is present. The patient denied recent injury or trauma but does state increased life stressors. The patient states that two days ago she had uncontrollable movements to her right arm, currently not present. The patient is concerned about her symptoms and would like to be further evaluated and treated. The patient will be admitted under hospitalist care to the telemetry unit for continuous monitoring and treatment. The patient denies pain, dizziness, blurred vision, fever, chills, headache, shortness of breath, chest pain, nausea, vomiting, abdominal pain, diarrhea, constipation and other associated symptoms. The plan has been discussed with the patient in which all questions concerns have been addressed TIA versus CVA--patient presents to ED with chief complaint of aphasia associated with headache x2 days Type 2 DM --uncontrolled Hypertension-uncontrolled Hyperlipidemia time: >35 minutes Plan discussed with: Patient My Orders Orders - JOSE WEINSTEIN DO Procedure Category Date Status Time Atorvastatin (Lipitor) PHA 12/07/24 Verified 12:15 * Neurology Consult CONS 12/07/24 Verified 12:14 Lisinopril Tablet PHA 12/08/24 Verified (Zestril Tablet) 10:00 Date of Service: December 07, 2024 Billing Provider: JOSE WEINSTEIN DO Common Visit Codes: [id number] INP/OBS CARE(HIGH) JOSE WEINSTEIN DO December 07, 2024 12:17
[2024-12-08] VITALS (9 sets, daily range): BP systolic 119–172; BP diastolic 65–78; PULSE 77–102; RESP 16–20; TEMP 98.3–99.2; O2SAT 93–100
--- NOTE | 2024-12-08 08:20 | DVHSR ---
APPROVED REPORT EXAM: Two-dimensional and M-mode echocardiogram with Doppler, color Doppler and Bubble Study. Blood Pressure: 165/80 mmHg INDICATION CVA/TIA: Bubble Study RISK FACTORS Height: 5' 1", Weight: 134 DIMENSIONS LVDd4.4 (3.8-5.7cm)LA (2D)3.0 (1.9-4.0cm)Aortic Root2.9 (2.0-3.7cm) LVDs3.2 (2.5-4.0cm)LA (MM) (1.9-4.0cm)Aortic Cusp Exc1.6 (1.5-2.0cm) EF (%) 55.0 (55-70%)Rt. Atrium3.5 (1.9-4.0cm)Asc. Aorta cm IVSd1.0 (0.7-1.1cm)RV (D) (1.8-2.4cm) PWd1.0 (0.7-1.1cm) Mitral Valve MitralMitral Stenosis E wave0.60m/sMV Mean GR.mmHg A wave0.70m/sMV Peak GR.mmHg E/A ratio0.92D MVAcm2 Aortic Valve Aortic ValveAortic Stenosis V10.50m/Donna Mean GR.3mmHg V21.10m/Donna Peak GR.5mmHg LVOT Diameter2.1 (1.8-2.4cm)Doppler AVA1.57cm2 Pulmonic Valve V20.50m/s Conclusion lvef 55% normal LV function normal RV function, no severe valve abnormalities noted normal atria normal pericardium bubble study is NEGATIVE showing NO R to L shunt
[2024-12-08] MEDS: LISINOPRIL 20 MG TAB PO SCH (09:27)
--- NOTE | 2024-12-08 14:50 | DVHINCON2 ---
Date of service: December 08, [address] May Reason for Consultation Stroke like syndrome History of Present Illness Ms. Arenas is a 4 years old right-handed female with a history of hypertension, diabetes, dyslipidemia, hypothyroidism, the patient came to the hospital on 12/06/2024 with a chief company of difficulty with speech. At this Time, she is alert, she understands, follow verbal commands, but she could not vocalize I saw on 07/25/2018 for dizziness/TIA (MRI negative) Apparently, the patient was developed dizziness/spinning sensation, nausea, gait disturbance, she was problem to get worse out In the hospital, CT brain scan showed acute left MCA territory multiple strokes, and severe left intracranial ICA stenosis UDS, 12/23/2024: Negative WBC/HB/PLT/MCV, 12/07/2024: 8.6/12/242/87.6 CMP, 12/07/2024: Unremarkable HGB A1c, 04/2020 4:12.2 TG/HDL/LDL/HDL, 04/2020 4:255/162/75/42 Echocardiogram, 12/08/2024: lvef 55% normal LV function normal RV function, no severe valve abnormalities noted normal atria normal pericardium bubble study is NEGATIVE showing NO R to L shunt Carotid Doppler, 07/25/18: There is 50-69% stenosis of the right mid cervical ICA, probably closer to 50% given velocity of only 125 cm/sec. Likely mild to moderate stenosis of the external carotid artery at the bifurcation. CTA head, neck, 12/07/2024: Mild narrowing of the left proximal internal carotid artery secondary to atherosclerotic calcification with severe narrowing/near occlusion of the left intracranial internal carotid artery. However the left MCA and MOR are both patent. No acute abnormal CT angiographic findings of the head and neck MRI brain, 07/26/18: 1. No evidence of acute intracranial pathology. 2. Unremarkable brain MRI without contrast. MRI head, 12/07/2024: Small acute/recent infarcts in the left frontal lobe and posterior left parietal lobe. There are a few scattered acute small infarcts in the deep left frontal and parietal lobe white matter ( in a watershed distribution). Past Medical History Hypertension, diabetes, dyslipidemia, hypothyroidism Past Surgical History Hysterectomy Family History: Cardiovascular disease G8 FATHER Diabetes mellitus G8 MOTHER G8 BROTHER G8 BROTHER G8 BROTHER Family History Hypertension, diabetes, heart disease Social History She is nonsmoker, she denies I history of alcohol recreational substances abuse Allergies: Coded Allergies: NO KNOWN ALLERGIES (Unverified , 07/30/16) Home Meds Active Scripts Glipizide (Glipizide) 10 Mg Tab, 1 TAB PO BID for 30 Days, #60 TAB 5 Refills Prov:CATEDIANNE [facility] 12/05/23 Cephalexin (KEFLEX CAPSULE) 250 Mg Cp, 1 CAP PO QID for 14 Days, #40 CAP Prov:NAHUNDIANNE [facility] 12/05/23 Hydroxyzine Hcl (Hydroxyzine Hcl) 10 Mg Tab, 10 MG PO Q6HP PRN for 30 Days, #120 TAB Prov:NAHUNDIANNE [facility] 12/05/23 Enalapril Maleate (Enalapril Maleate) 10 Mg Tab, 10 MG PO Q12HR for 30 Days, #60 TAB [facility] 12/05/23 Atorvastatin Calcium (ATORVASTATIN CALCIUM) 20 Mg Tab, 40 MG PO HS for 30 Days, #60 TAB [facility] 12/05/23 Aspirin (Aspirin Low Dose) 81 Mg Tab, 81 MG PO DAILY for 30 Days, #30 TAB [facility] 12/05/23 Amlodipine Besylate (NORVASC TABLET) 5 Mg Tb, 5 MG PO DAILY for 30 Days, #30 TAB Prov:[facility]DIANNE [facility] 12/05/23 Reported Medications Insulin Glargine (Lantus) 100 Unit/Ml Inj, 40 UNIT SC BID, INJ 12/07/24 Meclizine Hcl (Meclizine Hcl) 12.5 Mg Tab, 25 MG PO TID, TAB 12/07/24 Lisinopril (Lisinopril) 10 Mg Tab, 1 TAB PO DAILY 12/07/24 Hydrochlorothiazide (Hydrochlorothiazide) 12.5 Mg Tab, 1 TAB PO DAILY 12/07/24 Gabapentin (Gabapentin) 300 Mg Cap, 2 CAP PO TID 12/07/24 Insulin Glargine (Lantus) 100 Unit/Ml Inj, 40 UNIT SC DAILY, INJ 07/26/18 Insulin Lispro (Human) (Humalog) 100 Unit/Ml Inj, 5 UNIT SC BID, INJ 07/26/18 Gabapentin (Gabapentin) 100 Mg Cap, 100 MG PO TID 07/26/18 Cholecalciferol (VITAMIN D3) 2,000 Unit Tab, 2 TAB PO DAILY, #90 TAB 3 Refills 07/26/18 Omeprazole (Gnp Omeprazole) 20 Mg Tab, 20 MG PO DAILY, TAB 07/26/18 Current Medications Current Medications Medications (Trade) Dose Ordered Sig/Ade Route PRN Reason Start Time Stop Time Status Last Admin Lisinopril (Zestril Tablet) 20 mg DAILY PO 12/08/24 10:00 12/08/24 09:27 Review of Systems As above, the other systems are negative Vital Signs Vital Signs Date Time Temp Pulse Resp B/P (MAP) Pulse Ox O2 Delivery O2 Flow Rate FiO2 12/08/24 13:00 98.5 95 18 162/72 (102) 99 98.5 12/08/24 08:25 Room Air* 0 21 Physical Exam GENERAL EXAM: General: the patient is well developed and nourished. No acute distress. HEENT: Normocephalic, neck is supple, no carotid bruits. No mass. RESPIRATORY: Normal respiratory effort with symmetrical lung expansion. Lungs clear to auscultation. CARDIOVASCULAR: Regular rate and rhythm with no murmurs. S1, S2. ABDOMEN: Soft, nontender, normal bowel sound NEUROLOGICAL: MENTAL STATUS: Awake and alert. A presumed she was fully understand SPEECH, LANGUAGE, HIGHER CORTICAL FUNCTION: She does not vocalize, she has expressive aphasia CRANIAL NERVES: #2: Intact visual rodriguez to confrontation. The optic discs were sharp. #3,4,6: Pupils are equal, round and reactive. EOMs full and conjugate. No nystagmus. #5: Diminished pinprick and light touch in the right this. Mandibular strength intact. #7: Mild right facial weakness of upper motor neuron partner #8: Hearing grossly normal to voice. #9,10: Uvula and soft palate rise in the midline. Swallow and voice are normal. #11: Trapezius and sternomastoid strength intact bilaterally. #12: Tongue midline. No fasciculations or atrophy. SENSATION: Sensation to touch and pinprick is diminished in the left upper extremity MOTOR: Normal tone in the upper and lower extremity. Normal muscle bulk. No fasciculations. No abnormal movements or posturing. Muscle strength of the major groups in the upper extremities is: Right: 4/5, left: 5/5. Muscle strength of the major groups in the lower extremities is 5/5. REFLEXES: Deep tendon reflexes normal and symmetrical. No pathological reflexes. CEREBELLAR/COORDINATION: Finger to nose is unremarkable bilaterally GAIT/STATION: deferred. Labs/Diagnostic Data Labs Test 12/08/24 11:16 12/07/24 06:15 12/06/24 15:27 12/06/24 13:11 Range/Units POC Glucose 284 H 70-106 mg/dl White Blood Count 8.6 4.4-10.8 10^3/uL Red Blood Count 4.07 4.0-5.20 10^6/uL Hemoglobin 12.0 L 12.2-16.2 g/dL Hematocrit 35.6 L 36.0-46.0 % Mean Corpuscular Volume 87.6 80.0-100.0 fL Mean Corpuscular Hemoglobin 29.6 28.0-32.0 pg Mean Corpuscular Hemoglobin Concent 33.8 32.0-36.0 g/dL Red Cell Distribution Width 14.3 11.8-14.3 % Platelet Count 242 140-450 10^3/uL Mean Platelet Volume 8.6 6.9-10.8 fL Neutrophils (%) (Auto) 56.3 37.0-80.0 % Lymphocytes (%) (Auto) 36.7 10.0-50.0 % Monocytes (%) (Auto) 5.1 0.0-12.0 % Eosinophils (%) (Auto) 1.5 0.0-7.0 % Basophils (%) (Auto) 0.4 0.0-2.0 % Neutrophils # (Auto) 4.9 1.6-8.6 10 ^3/uL Lymphocytes # (Auto) 3.2 0.4-5.4 10 ^3/uL Monocytes # (Auto) 0.4 0-1.3 10 ^3/uL Eosinophils # (Auto) 0.1 0-0.8 10 ^3/uL Basophils # (Auto) 0 0-0.2 10 ^3/uL Nucleated Red Blood Cells 0.1 % Sodium Level 142 136-145 mmol/L Potassium Level 4.2 3.5-5.1 mmol/L Chloride Level 107 98-107 mmol/L Carbon Dioxide Level 25 20-31 mmol/L Anion Gap 10 5-15 Blood Urea Nitrogen 20 9-23 mg/dL Creatinine 0.79 0.550-1.02 mg/dL Glomerular Filtration Rate Calc 88 >90 mL/min BUN/Creatinine Ratio 25.3 H 10.0-20.0 Serum Glucose 169 H 74-106 mg/dL Calcium Level 10.4 8.7-10.4 mg/dL Total Bilirubin 0.3 0.2-1.0 mg/dL Aspartate Amino Transferase (AST) 13 13-40 U/L Alanine Aminotransferase (ALT) 12 7-40 U/L Alkaline Phosphatase 106 46-116 U/L Total Protein 7.4 5.7-8.2 g/dL Albumin 4.3 3.2-4.8 g/dL Troponin I High Sensitivity 3 L </=34 ng/L Urine Color Light-yellow Yellow Urine Clarity Clear Clear Urine pH 6.0 5.0-9.0 Urine Specific [place] 1.015 1.001-1.035 Urine Protein 1+ H Negative Urine Ketones Negative Negative Urine Blood Negative Negative /uL Urine Nitrite Negative Negative Urine Bilirubin Negative Negative Urine Urobilinogen Normal Negative mg/dL Urine Leukocyte Esterase Negative Negative /uL Urine RBC 3 0 - 4 /hpf Urine Microscopic WBC 1 0-5 /HPF Urine Squamous Epithelial Cells Mod <5 /hpf Urine Bacteria Few H None Seen /hpf Urine Glucose 4+ H Normal mg/dL Urine Opiates Screen Neg NEGATIVE Urine Fentanyl Screen Neg NEGATIVE Urine Barbiturates Screen Neg NEGATIVE Urine Phencyclidine Screen Neg NEGATIVE Urine Amphetamines Screen Neg NEGATIVE Urine Benzodiazepines Screen Neg NEGATIVE Urine Cocaine Screen Neg NEGATIVE Urine Cannabinoids Screen Neg NEGATIVE Test 12/06/24 12:12 Range/Units Prothrombin Time 9.7 9.3-11.8 sec Prothrombin Time INR 0.91 0.9-1.15 Activated Partial Thromboplast Time 23.1 L 24.5-34.5 SEC Lactic Acid Level 1.9 0.4-2.0 mmol/L Magnesium Level 2.0 1.6-2.6 mg/dL B-Type Natriuretic Peptide 54.70 0-100 pg/mL Assessment Acute multiple strokes in the left MCA territory Expressive aphasia, secondary to acute stroke Left intercranial ICA stenosis Mild right facial weakness, upper extremity weakness Plan/Recommendation Monitoring Supportive treatment Telemetry Aspirin 81 mg daily Lipitor 75 mg daily for 21 days Lipitor 80 mg daily GI prophylax Up to chair Physical therapy Speech pathology evaluation Progress: Poor This medical document was created using an electronic medical record system with [employer] dictation system. Although this document has been carefully reviewed, there may still be some phonetic and typographical errors. These areas are purely typographical due to imperfections of the software programs, and do not reflect any compromise in the patient's medical care. Plan discussed with: Patient, Other ALISON HUMPHREYS MD December 08, 2024 14:50
--- NOTE | 2024-12-08 15:04 | DVHPN2 ---
Subjective 54-year-old female with a history of hypertension, diabetes, hypercholesterolemia came with a chief complaint of slurred speech and right hand weakness since December 04 according to the family she became confused and was not able to get her words out and weakness in her right hand Apparently she had these exact symptoms a month ago and she did not seek medical attention then but her symptoms resolved This time however she continued to have these symptoms for the next 2 days until the family decided to bring her here 2 days later She was interviewed by the on-call neurologist and she was already out of the outside of the window for tPA Workup here showed with an MRI of the brain showed small acute recent infarcts in the left frontal lobe and posterior left parietal lobe with few scattered acute small infarcts in the deep left frontal and parietal lobe white matter in a watershed distribution Carotid Doppler showed stump flow on the left side with velocity suggesting distal intracranial obstruction and therefore a CT angiogram was done showed severe narrowing and near occlusion of the left intracranial internal carotid artery The patient is aphasic and she is complaining of weakness in her right arm Bilateral lower extremities strength is normal She is able to ambulate She is alert and oriented in no apparent distress Reviewed: Care Plan, H&P, Labs, Medications, Previous Orders, Radiology Changes from previous H/P or p: Changes General: Per HPI Objective Vitals Vital Signs Date Time Temp Pulse Resp B/P (MAP) Pulse Ox O2 Delivery O2 Flow Rate FiO2 12/08/24 13:00 98.5 95 18 162/72 (102) 99 98.5 12/08/24 08:25 Room Air* 0 21 Intake/Output Intake and Output 12/08/24 06:59 Intake Total 800 ml Balance 800 ml Intake Oral 800 ml # Voids 3 General Appearance: Alert, Oriented X3 Lungs: Clear to auscultation Cardiovascular: Regular rate, Normal S1, Normal S2 Abdomen: Normal bowel sounds, Soft, No tenderness Extremities: No edema Medications Current Medications Medications Dose Ordered Sig/Ade Route Start Time Stop Time Status Last Admin Dose Admin Acetaminophen/ Hydrocodone Bitart 1 tab Q4HP PRN PO 12/06/24 18:00 12/07/24 21:40 1 TAB Ondansetron HCl 4 mg Q4HP PRN IV 12/06/24 18:00 12/07/24 14:59 4 MG Enoxaparin Sodium 40 mg DAILY SC 12/07/24 10:00 12/08/24 09:27 40 MG Acetaminophen 650 mg Q6HP PRN PO 12/06/24 18:00 Nitroglycerin 0.4 mg Q5MINP PRN SL 12/06/24 18:00 Morphine Sulfate 2 mg Q30M PRN IV 12/06/24 18:00 Diagnostic Test (Pha) 1 strip ACHS 12/06/24 22:00 12/08/24 11:21 1 STRIP Insulin Human Regular ACHS SC 12/06/24 22:00 12/08/24 11:24 6 UNITS Dextrose 50 ml UD PRN IV 12/06/24 18:00 Hydralazine HCl 10 mg Q6HP PRN IV 12/06/24 18:00 12/08/24 08:00 10 MG Amlodipine Besylate 5 mg DAILY PO 12/07/24 10:00 12/08/24 09:28 5 MG Aspirin 81 mg DAILY PO 12/07/24 10:00 12/08/24 09:27 81 MG Enalapril Maleate 10 mg Q12HR PO 12/06/24 22:00 Hold 12/07/24 09:25 10 MG Gabapentin 100 mg TID PO 12/06/24 22:00 12/08/24 05:29 100 MG Cholecalciferol 2,000 unit DAILY PO 12/07/24 10:00 12/08/24 09:27 2,000 UNIT Pantoprazole Sodium 40 mg DAILY PO 12/07/24 10:00 12/08/24 09:27 40 MG Atorvastatin Calcium 80 mg HS PO 12/07/24 12:15 12/07/24 21:39 80 MG Lisinopril 20 mg DAILY PO 12/08/24 10:00 12/08/24 09:27 20 MG Laboratory Results Laboratory Tests 12/07/24 06:15 Urinalysis Test 12/06/24 13:11 Urine Color Light-yellow (Yellow) Urine Clarity Clear (Clear) Urine pH 6.0 (5.0-9.0) Urine Specific [place] 1.015 (1.001-1.035) Urine Protein 1+ (Negative) H Urine Ketones Negative (Negative) Urine Blood Negative /uL (Negative) Urine Nitrite Negative (Negative) Urine Bilirubin Negative (Negative) Urine Urobilinogen Normal mg/dL (Negative) Urine Leukocyte Esterase Negative /uL (Negative) Urine RBC 3 /hpf (0 - 4) Urine Microscopic WBC 1 /HPF (0-5) Urine Squamous Epithelial Cells Mod /hpf (<5) Urine Bacteria Few /hpf (None Seen) H Urine Glucose 4+ mg/dL (Normal) H Assessment/Plan Assessment/Plan 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 Merrill Left Critical carotid stenosis: Patient needs vascular intervention and therefore she will need to be transferred to higher level of care for carotid artery intervention Discussed with the family at the bedside Full code Advance directives discussed with the family inpatient for 20 minutes Plan discussed with: Patient, Spouse, Daughter My Orders Orders - TATY SANTOS MD Procedure Category Date Status Time * Lumber Scaler CONS 12/08/24 Transmitted Consult Date of Service: December 08, 2024 Billing Provider: TATY SANTOS MD Common Visit Codes: NOT BILLABLE Secondary Visit Codes: [id number] CARE PLAN 30 MINUTES TATY SANTOS MD December 08, 2024 15:04
[2024-12-08] MEDS: hydrALAZINE HCL 20 MG/ML VL IV PRN (16:27)
--- NOTE | 2024-12-08 16:52 | DVHDS2 ---
Discharge Summary Date of Admission December 06, 2024 at 17:55 Date of Discharge: December 08, 2024 Labs/Diagnostic Data: Laboratory Results Test 12/08/24 11:16 12/07/24 06:15 12/06/24 15:27 12/06/24 13:11 POC Glucose 284 mg/dl (70-106) White Blood Count 8.6 10^3/uL (4.4-10.8) Red Blood Count 4.07 10^6/uL (4.0-5.20) Hemoglobin 12.0 g/dL (12.2-16.2) Hematocrit 35.6 % (36.0-46.0) Mean Corpuscular Volume 87.6 fL (80.0-100.0) Mean Corpuscular Hemoglobin 29.6 pg (28.0-32.0) Mean Corpuscular Hemoglobin Concent 33.8 g/dL (32.0-36.0) Red Cell Distribution Width 14.3 % (11.8-14.3) Platelet Count 242 10^3/uL (140-450) Mean Platelet Volume 8.6 fL (6.9-10.8) Neutrophils (%) (Auto) 56.3 % (37.0-80.0) Lymphocytes (%) (Auto) 36.7 % (10.0-50.0) Monocytes (%) (Auto) 5.1 % (0.0-12.0) Eosinophils (%) (Auto) 1.5 % (0.0-7.0) Basophils (%) (Auto) 0.4 % (0.0-2.0) Neutrophils # (Auto) 4.9 10 ^3/uL (1.6-8.6) Lymphocytes # (Auto) 3.2 10 ^3/uL (0.4-5.4) Monocytes # (Auto) 0.4 10 ^3/uL (0-1.3) Eosinophils # (Auto) 0.1 10 ^3/uL (0-0.8) Basophils # (Auto) 0 10 ^3/uL (0-0.2) Nucleated Red Blood Cells 0.1 % Sodium Level 142 mmol/L (136-145) Potassium Level 4.2 mmol/L (3.5-5.1) Chloride Level 107 mmol/L (98-107) Carbon Dioxide Level 25 mmol/L (20-31) Anion Gap 10 (5-15) Blood Urea Nitrogen 20 mg/dL (9-23) Creatinine 0.79 mg/dL (0.550-1.02) Glomerular Filtration Rate Calc 88 mL/min (>90) BUN/Creatinine Ratio 25.3 (10.0-20.0) Serum Glucose 169 mg/dL (74-106) Calcium Level 10.4 mg/dL (8.7-10.4) Total Bilirubin 0.3 mg/dL (0.2-1.0) Aspartate Amino Transferase (AST) 13 U/L (13-40) Alanine Aminotransferase (ALT) 12 U/L (7-40) Alkaline Phosphatase 106 U/L (46-116) Total Protein 7.4 g/dL (5.7-8.2) Albumin 4.3 g/dL (3.2-4.8) Troponin I High Sensitivity 3 ng/L (</=34) Urine Color Light-yellow (Yellow) Urine Clarity Clear (Clear) Urine pH 6.0 (5.0-9.0) Urine Specific [place] 1.015 (1.001-1.035) Urine Protein 1+ (Negative) Urine Ketones Negative (Negative) Urine Blood Negative /uL (Negative) Urine Nitrite Negative (Negative) Urine Bilirubin Negative (Negative) Urine Urobilinogen Normal mg/dL (Negative) Urine Leukocyte Esterase Negative /uL (Negative) Urine RBC 3 /hpf (0 - 4) Urine Microscopic WBC 1 /HPF (0-5) Urine Squamous Epithelial Cells Mod /hpf (<5) Urine Bacteria Few /hpf (None Seen) Urine Glucose 4+ mg/dL (Normal) Urine Opiates Screen Neg (NEGATIVE) Urine Fentanyl Screen Neg (NEGATIVE) Urine Barbiturates Screen Neg (NEGATIVE) Urine Phencyclidine Screen Neg (NEGATIVE) Urine Amphetamines Screen Neg (NEGATIVE) Urine Benzodiazepines Screen Neg (NEGATIVE) Urine Cocaine Screen Neg (NEGATIVE) Urine Cannabinoids Screen Neg (NEGATIVE) Test 12/06/24 12:12 Prothrombin Time 9.7 sec (9.3-11.8) Prothrombin Time INR 0.91 (0.9-1.15) Activated Partial Thromboplast Time 23.1 SEC (24.5-34.5) Lactic Acid Level 1.9 mmol/L (0.4-2.0) Magnesium Level 2.0 mg/dL (1.6-2.6) B-Type Natriuretic Peptide 54.70 pg/mL (0-100) Other Laboratory Tests 12/07/24 06:15 Brief Hx & Hospital Course: 54-year-old female with a history of hypertension, diabetes, hypercholesterolemia came with a chief complaint of slurred speech and right hand weakness since December 04 according to the family she became confused and was not able to get her words out and weakness in her right hand Apparently she had these exact symptoms a month ago and she did not seek medical attention then but her symptoms resolved This time however she continued to have these symptoms for the next 2 days until the family decided to bring here to ER She was interviewed by the on-call neurologist and she was already outside of the window for tPA Workup here with an MRI of the brain showed small acute recent infarcts in the left frontal lobe and posterior left parietal lobe with few scattered acute small infarcts in the deep left frontal and parietal lobe white matter in a watershed distribution Carotid Doppler showed stump flow on the left side with velocity suggesting distal intracranial obstruction and therefore a CT angiogram was done showed severe narrowing and near occlusion of the left intracranial internal carotid artery The patient is aphasic and has weakness in her right arm Bilateral lower extremities strength is normal She is able to ambulate She is alert and oriented in no apparent distress Final diagnoses: 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 Patient was counseled about treatment plan, medications, possible side effects, patient�verbalized understanding. All questions were answered to the best of my ability. This discharge took greater then 30 minutes in planning, reviewing documentation, counseling the patient, and discussing with other team members." ASSESSMENT ASSESSMENT Assessment Date of Service: December 08, 2024 Billing Provider: TATY SANTOS MD Common Visit Codes: 78872-TSY/[id number] DISCH DAY >30min ATTY SANTOS MD December 08, 2024 16:51
[2024-12-08] MEDS: CLOPIDOGREL BISULFATE 75 MG TAB PO ONE (19:52)
[2024-12-09] VITALS (9 sets, daily range): BP systolic 124–157; BP diastolic 59–73; PULSE 77–99; RESP 16–18; TEMP 98.1–99; O2SAT 95–96
[2024-12-09] MEDS: SODIUM CHLORIDE 0.9% 1,000 ML IV SCH (01:04)
[2024-12-09 06:57] LABS: Cholesterol 167 mg/dL (< 200)
[2024-12-09 06:58] LABS: Triglycerides 187 mg/dL (< 150)
[2024-12-09 07:02] LABS: HDL Cholesterol 37 mg/dL (40-59); LDL Cholesterol 100 mg/dL (< 100)
[2024-12-09] MEDS ORDERED: CLOPIDOGREL BISULFATE 75 MG TAB PO SCH (10:00)
[2024-12-09] MEDS: CLOPIDOGREL BISULFATE 75 MG TAB PO SCH (10:15)
--- NOTE | 2024-12-09 10:28 | DVHPN2 ---
Subjective No new complaints According to family at the bedside she is more alert today She is complaining of some dizziness when she is ambulating She is still aphasic and has right arm weakness Reviewed: Care Plan, H&P, Labs, Medications, Previous Orders, Radiology Changes from previous H/P or p: Changes General: Per HPI Objective Vitals Vital Signs Date Time Temp Pulse Resp B/P (MAP) Pulse Ox O2 Delivery O2 Flow Rate FiO2 12/09/24 10:14 145/67 12/09/24 05:00 98.5 90 18 95 98.5 12/08/24 20:00 Nasal Cannula* 2 28 Intake/Output Intake and Output 12/09/24 07:00 Intake Total 1700 ml Balance 1700 ml Intake Oral 1700 ml # Voids 6 General Appearance: Alert, Oriented X3 HEENT: Atraumatic Lungs: Clear to auscultation Cardiovascular: Regular rate, Normal S1, Normal S2 Abdomen: Normal bowel sounds, Soft, No tenderness Extremities: No edema Neuro: Other (Right upper extremity weakness 3/5 compared to left 5/5) Medications Current Medications Medications Dose Ordered Sig/Ade Route Start Time Stop Time Status Last Admin Dose Admin Acetaminophen/ Hydrocodone Bitart 1 tab Q4HP PRN PO 12/06/24 18:00 12/07/24 21:40 1 TAB Ondansetron HCl 4 mg Q4HP PRN IV 12/06/24 18:00 12/07/24 14:59 4 MG Acetaminophen 650 mg Q6HP PRN PO 12/06/24 18:00 Nitroglycerin 0.4 mg Q5MINP PRN SL 12/06/24 18:00 Morphine Sulfate 2 mg Q30M PRN IV 12/06/24 18:00 Diagnostic Test (Pha) 1 strip ACHS 12/06/24 22:00 12/09/24 06:23 1 STRIP Insulin Human Regular ACHS SC 12/06/24 22:00 12/09/24 06:28 3 UNITS Dextrose 50 ml UD PRN IV 12/06/24 18:00 Amlodipine Besylate 5 mg DAILY PO 12/07/24 10:00 12/09/24 10:14 5 MG Aspirin 81 mg DAILY PO 12/07/24 10:00 12/09/24 10:15 81 MG Gabapentin 100 mg TID PO 12/06/24 22:00 12/09/24 06:27 100 MG Cholecalciferol 2,000 unit DAILY PO 12/07/24 10:00 12/09/24 10:15 2,000 UNIT Pantoprazole Sodium 40 mg DAILY PO 12/07/24 10:00 12/09/24 10:15 40 MG Atorvastatin Calcium 80 mg HS PO 12/07/24 12:15 12/08/24 21:48 80 MG Lisinopril 20 mg DAILY PO 12/08/24 10:00 12/09/24 10:14 20 MG Hydralazine HCl 10 mg Q6HP PRN IV 12/08/24 15:15 12/08/24 21:50 10 MG Sodium Chloride 1,000 ml @ 50 mls/hr Q20H IV 12/09/24 00:45 12/09/24 01:04 50 MLS/HR Clopidogrel Bisulfate 75 mg DAILY PO 12/09/24 10:00 12/29/24 23:00 12/09/24 10:15 75 MG Laboratory Results Laboratory Tests 12/07/24 06:15 Lipid panel Test 12/09/24 05:45 Cholesterol Level 167 mg/dL (< 200) HDL Cholesterol 37 mg/dL (40-59) L Triglycerides Level 187 mg/dL (< 150) H HgA1c, TSH Test 12/09/24 05:45 Hemoglobin A1c 12.6 % A1C (<5.7) H Urinalysis Test 12/06/24 13:11 Urine Color Light-yellow (Yellow) Urine Clarity Clear (Clear) Urine pH 6.0 (5.0-9.0) Urine Specific [place] 1.015 (1.001-1.035) Urine Protein 1+ (Negative) H Urine Ketones Negative (Negative) Urine Blood Negative /uL (Negative) Urine Nitrite Negative (Negative) Urine Bilirubin Negative (Negative) Urine Urobilinogen Normal mg/dL (Negative) Urine Leukocyte Esterase Negative /uL (Negative) Urine RBC 3 /hpf (0 - 4) Urine Microscopic WBC 1 /HPF (0-5) Urine Squamous Epithelial Cells Mod /hpf (<5) Urine Bacteria Few /hpf (None Seen) H Urine Glucose 4+ mg/dL (Normal) H Assessment/Plan Assessment/Plan 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 Merrill Left Critical carotid stenosis: Patient needs vascular intervention and therefore she will need to be transferred to higher level of care for carotid artery intervention Discussed with the family at the bedside Full code Advance directives discussed with the family inpatient for 20 minutes 12/09/2024: Continue aspirin and Plavix Discussed the case again with Dr. Merrill and with Inter[facility] from [facility] and due to the fact that the internal carotid artery stenosis is intracranial, and intervention for that stenosis is not recommended, Medical management is recommended for this patient based on the above findings Cancel the transfer to higher level of care Continue aspirin and Plavix She will need aspirin 81 mg daily for She will need Plavix 75 mg daily for 90 days Lipitor Aggressive control of her diabetes and hypertension and dyslipidemia Hemoglobin A1c is 12.6 Triglycerides 187 Cholesterol 167 LDL is 100 Change the diet to consistent carb low cholesterol cardiac diet Lisinopril 20 mg daily Hydralazine p.r.n. Amlodipine 5 mg daily Discontinue the IV fluids Physical therapy evaluation and treatment Monitor closely Lantus 10 units twice a day Plan discussed with: Patient, Son My Orders Orders - TATY SANTOS MD Procedure Category Date Status Time Hydralazine Injection PHA 12/08/24 In Process (Apresoline Inject 15:15 Discharge DISCHARGE 12/08/24 Transmitted 16:52 * Facilities Planner CONS 12/09/24 Transmitted Consult 09:36 Date of Service: December 09, 2024 Billing Provider: TATY SANTOS MD Common Visit Codes: [id number] INP/OBS CARE(HIGH) TATY SANTOS MD December 09, 2024 10:28
[2024-12-09] MEDS: INSULIN LANTUS (GLARGINE) 1 /0.01ml (100units/ml) SC ONE (12:30)
[2024-12-09] MEDS: INSULIN LANTUS (GLARGINE) 1 /0.01ml (100units/ml) SC SCH (21:55)
--- NOTE | 2024-12-09 23:28 | DVHPN2 ---
Progress Note - Dictate Date Seen: December 09, 2024 Medical Necessity Reason Pt with a Central, PICC or Fol: No Subjective Ms. Arenas is a 4 years old right-handed female with a history of hypertension, diabetes, dyslipidemia, hypothyroidism, the patient came to the hospital on 12/06/2024 with a chief company of difficulty with speech I saw on 07/25/2018 for dizziness/TIA (MRI negative) I have seen and examined the patient, I have discussed with her nurse The case was discussed with Dr. Chandra earlier today UDS, 12/23/2024: Negative WBC/HB/PLT/MCV, 12/07/2024: 8.6/12/242/87.6 CMP, 12/07/2024: Unremarkable HGB A1c, 04/2020 4:12.2 TG/HDL/LDL/HDL, 04/2020 4:255/162/75/42 Echocardiogram, 12/08/2024: lvef 55% normal LV function normal RV function, no severe valve abnormalities noted normal atria normal pericardium bubble study is NEGATIVE showing NO R to L shunt Carotid Doppler, 07/25/18: There is 50-69% stenosis of the right mid cervical ICA, probably closer to 50% given velocity of only 125 cm/sec. Likely mild to moderate stenosis of the external carotid artery at the bifurcation. CTA head, neck, 12/07/2024: Mild narrowing of the left proximal internal carotid artery secondary to atherosclerotic calcification with severe narrowing/near occlusion of the left intracranial internal carotid artery. However the left MCA and MOR are both patent. No acute abnormal CT angiographic findings of the head and neck MRI brain, 07/26/18: 1. No evidence of acute intracranial pathology. 2. Unremarkable brain MRI without contrast. MRI head, 12/07/2024: Small acute/recent infarcts in the left frontal lobe and posterior left parietal lobe. There are a few scattered acute small infarcts in the deep left frontal and parietal lobe white matter ( in a watershed distribution) vital signs Vital Sign Date Time Temp Pulse Resp B/P (MAP) Pulse Ox O2 Delivery O2 Flow Rate FiO2 12/09/24 17:00 98.1 80 17 153/67 (95) 96 98.1 12/09/24 07:35 Room Air* 0 21 Total Intake and Output 12/08/24 12/08/24 12/09/24 15:00 23:00 07:00 Intake Total 900 ml 800 ml Balance 900 ml 800 ml medications Current Medications Medications Dose Ordered Sig/Ade Route Start Time Stop Time Status Last Admin Dose Admin Acetaminophen/ Hydrocodone Bitart 1 tab Q4HP PRN PO 12/06/24 18:00 12/07/24 21:40 1 TAB Ondansetron HCl 4 mg Q4HP PRN IV 12/06/24 18:00 12/07/24 14:59 4 MG Acetaminophen 650 mg Q6HP PRN PO 12/06/24 18:00 Nitroglycerin 0.4 mg Q5MINP PRN SL 12/06/24 18:00 Morphine Sulfate 2 mg Q30M PRN IV 12/06/24 18:00 Diagnostic Test (Pha) 1 strip ACHS 12/06/24 22:00 12/09/24 21:54 1 STRIP Insulin Human Regular ACHS SC 12/06/24 22:00 12/09/24 21:53 6 UNITS Dextrose 50 ml UD PRN IV 12/06/24 18:00 Amlodipine Besylate 5 mg DAILY PO 12/07/24 10:00 12/09/24 10:14 5 MG Aspirin 81 mg DAILY PO 12/07/24 10:00 12/09/24 10:15 81 MG Gabapentin 100 mg TID PO 12/06/24 22:00 12/09/24 21:50 100 MG Cholecalciferol 2,000 unit DAILY PO 12/07/24 10:00 12/09/24 10:15 2,000 UNIT Pantoprazole Sodium 40 mg DAILY PO 12/07/24 10:00 12/09/24 10:15 40 MG Atorvastatin Calcium 80 mg HS PO 12/07/24 12:15 12/09/24 21:50 80 MG Lisinopril 20 mg DAILY PO 12/08/24 10:00 12/09/24 10:14 20 MG Hydralazine HCl 10 mg Q6HP PRN IV 12/08/24 15:15 12/08/24 21:50 10 MG Clopidogrel Bisulfate 75 mg DAILY PO 12/09/24 10:00 12/29/24 23:00 12/09/24 10:15 75 MG Insulin Glargine 10 units BID@0700,2200 SC 12/09/24 22:00 12/09/24 21:55 10 UNITS objective General: the patient is well developed and nourished. No acute distress. MENTAL STATUS: Awake and alert. A presumed she was fully understand SPEECH, LANGUAGE, HIGHER CORTICAL FUNCTION: She does not vocalize, she has expressive aphasia CRANIAL NERVES: Pupils are equal, round and reactive. EOMs full and conjugate. No nystagmus. Diminished pinprick and light touch in the right this. Mandibular strength intact. Mild right facial weakness of upper motor neuron partner SENSATION: Sensation to touch and pinprick is diminished in the left upper extremity MOTOR: Normal tone in the upper and lower extremity. Normal muscle bulk. No fasciculations. No abnormal movements or posturing. Muscle strength of the major groups in the upper extremities is: Right: 4/5, left: 5/5. Muscle strength of the major groups in the lower extremities is 5/5. REFLEXES: Deep tendon reflexes normal and symmetrical. No pathological reflexes. CEREBELLAR/COORDINATION: Finger to nose is unremarkable bilaterally GAIT/STATION: deferred. laboratory and microbiology Laboratory Tests 12/07/24 06:15 Test 12/07/24 06:15 Range/Units Serum Glucose 169 H 74-106 mg/dL Problem List Acute multiple strokes in the left MCA territory Expressive aphasia, secondary to acute stroke Left intracranial ICA stenosis Mild right facial weakness, upper extremity weakness Assessment/Plan Monitoring Supportive treatment Telemetry Aspirin 81 mg daily Lipitor 75 mg daily for 21 days Lipitor 80 mg daily GI prophylax Up to chair Physical therapy Speech pathology evaluation This medical document was created using an electronic medical record system with [employer] dictation system. Although this document has been carefully reviewed, there may still be some phonetic and typographical errors. These areas are purely typographical due to imperfections of the software programs, and do not reflect any compromise in the patient's medical care. Prognosis poor Dietary Evaluation Review Comments: follow Cardiac CCHO-60 diet, Monitor PO intake to meey 75% of her needs. Expected Outcomes/Goals: maintain wt. controlled DM, improved nutrition status Plan discussed with: Other ALISON HUMPHREYS MD December 09, 2024 23:28
[2024-12-10] VITALS (7 sets, daily range): BP systolic 124–165; BP diastolic 60–76; PULSE 62–96; RESP 16–18; TEMP 97.3–98.3; O2SAT 95–98
[2024-12-10] MEDS ORDERED: ATOR80TA PO (10:04)
[2024-12-10] MEDS ORDERED: CLOP75TA70 PO (10:04)
--- NOTE | 2024-12-10 23:11 | DVHPN2 ---
Progress Note - Dictate Date Seen: December 10, 2024 Medical Necessity Reason Pt with a Central, PICC or Fol: No Subjective Ms. Arenas is a 54 years old right-handed female with a history of hypertension, diabetes, dyslipidemia, hypothyroidism, the patient came to the hospital on 12/06/2024 with a chief company of difficulty with speech I saw on 07/25/2018 for dizziness/TIA (MRI negative) I have seen and examined the patient, I have discussed with her nurse, she was oriented x3, she was able to speak a little bit more, but still have obvious expressive aphasia UDS, 12/23/2024: Negative WBC/HB/PLT/MCV, 12/07/2024: 8.6/12/242/87.6 CMP, 12/07/2024: Unremarkable HGB A1c, 04/2020 4:12.2 TG/HDL/LDL/HDL, 04/2020 4:255/162/75/42 Echocardiogram, 12/08/2024: lvef 55% normal LV function normal RV function, no severe valve abnormalities noted normal atria normal pericardium bubble study is NEGATIVE showing NO R to L shunt Carotid Doppler, 07/25/18: There is 50-69% stenosis of the right mid cervical ICA, probably closer to 50% given velocity of only 125 cm/sec. Likely mild to moderate stenosis of the external carotid artery at the bifurcation. CTA head, neck, 12/07/2024: Mild narrowing of the left proximal internal carotid artery secondary to atherosclerotic calcification with severe narrowing/near occlusion of the left intracranial internal carotid artery. However the left MCA and MOR are both patent. No acute abnormal CT angiographic findings of the head and neck MRI brain, 07/26/18: 1. No evidence of acute intracranial pathology. 2. Unremarkable brain MRI without contrast. MRI head, 12/07/2024: Small acute/recent infarcts in the left frontal lobe and posterior left parietal lobe. There are a few scattered acute small infarcts in the deep left frontal and parietal lobe white matter ( in a watershed distribution) vital signs Vital Sign Date Time Temp Pulse Resp B/P (MAP) Pulse Ox O2 Delivery O2 Flow Rate FiO2 12/10/24 17:00 97.3 62 18 131/60 (83) 98 97.3 12/10/24 07:40 Room Air* 0 21 Total Intake and Output 5/612/09/24 12/10/24 15:00 23:00 07:00 Intake Total 150 ml 600 ml 350 ml Balance 150 ml 600 ml 350 ml medications Current Medications Medications Dose Ordered Sig/Ade Route Start Time Stop Time Status Last Admin Dose Admin Acetaminophen/ Hydrocodone Bitart 1 tab Q4HP PRN PO 12/06/24 18:00 12/07/24 21:40 1 TAB Ondansetron HCl 4 mg Q4HP PRN IV 12/06/24 18:00 12/07/24 14:59 4 MG Acetaminophen 650 mg Q6HP PRN PO 12/06/24 18:00 Nitroglycerin 0.4 mg Q5MINP PRN SL 12/06/24 18:00 Morphine Sulfate 2 mg Q30M PRN IV 12/06/24 18:00 Diagnostic Test (Pha) 1 strip ACHS 12/06/24 22:00 12/10/24 22:18 1 STRIP Insulin Human Regular ACHS SC 12/06/24 22:00 12/10/24 22:22 4 UNITS Dextrose 50 ml UD PRN IV 12/06/24 18:00 Amlodipine Besylate 5 mg DAILY PO 12/07/24 10:00 12/10/24 10:04 5 MG Aspirin 81 mg DAILY PO 12/07/24 10:00 12/10/24 10:04 81 MG Gabapentin 100 mg TID PO 12/06/24 22:00 12/10/24 22:17 100 MG Cholecalciferol 2,000 unit DAILY PO 12/07/24 10:00 12/10/24 10:04 2,000 UNIT Pantoprazole Sodium 40 mg DAILY PO 12/07/24 10:00 12/10/24 10:03 40 MG Atorvastatin Calcium 80 mg HS PO 12/07/24 12:15 12/10/24 22:17 80 MG Lisinopril 20 mg DAILY PO 12/08/24 10:00 12/10/24 10:03 20 MG Hydralazine HCl 10 mg Q6HP PRN IV 12/08/24 15:15 12/10/24 13:11 10 MG Clopidogrel Bisulfate 75 mg DAILY PO 12/09/24 10:00 12/29/24 23:00 12/10/24 10:04 75 MG Insulin Glargine 10 units BID@0700,2200 SC 12/09/24 22:00 12/10/24 22:23 10 UNITS objective General: the patient is well developed and nourished. No acute distress. MENTAL STATUS: Awake and alert. A presumed she was fully understand SPEECH, LANGUAGE, HIGHER CORTICAL FUNCTION: She does not vocalize, she has expressive aphasia CRANIAL NERVES: Pupils are equal, round and reactive. EOMs full and conjugate. No nystagmus. Diminished pinprick and light touch in the right this. Mandibular strength intact. Mild right facial weakness of upper motor neuron partner SENSATION: Sensation to touch and pinprick is diminished in the left upper extremity MOTOR: Normal tone in the upper and lower extremity. Normal muscle bulk. No fasciculations. No abnormal movements or posturing. Muscle strength of the major groups in the upper extremities is: Right: 4/5, left: 5/5. Muscle strength of the major groups in the lower extremities is 5/5. REFLEXES: Deep tendon reflexes normal and symmetrical. No pathological reflexes. CEREBELLAR/COORDINATION: Finger to nose is unremarkable bilaterally GAIT/STATION: deferred. laboratory and microbiology Laboratory Tests 12/07/24 06:15 Test 12/07/24 06:15 Range/Units Serum Glucose 169 H 74-106 mg/dL Problem List Acute multiple strokes in the left MCA territory Expressive aphasia, secondary to acute stroke Severe left intracranial ICA stenosis Mild right facial weakness, upper extremity weakness Assessment/Plan Monitoring Supportive treatment Telemetry Aspirin 81 mg daily Lipitor 75 mg daily for 21 days Lipitor 80 mg daily GI prophylax Up to chair Physical therapy Speech pathology evaluation This medical document was created using an electronic medical record system with [employer] computerized dictation system. Although this document has been carefully reviewed, there may still be some phonetic and typographical errors. These areas are purely typographical due to imperfections of the software programs, and do not reflect any compromise in the patient's medical care. Prognosis poor Dietary Evaluation Review Comments: follow Cardiac CCHO-60 diet, Monitor PO intake to meey 75% of her needs. Expected Outcomes/Goals: maintain wt. controlled DM, improved nutrition status Plan discussed with: Patient, Other ALISON HUMPHREYS MD December 10, 2024 23:11
[2024-12-11 01:00] VITALS: BP 139/66; PULSE 78; RESP 18; TEMP 98.5; O2SAT 96
[2024-12-11 05:00] VITALS: BP 144/72; PULSE 78; RESP 18; TEMP 98.2; O2SAT 98
[2024-12-11 08:00] VITALS: PULSE 70; PULSE 71; RESP 17; O2SAT 97
[2024-12-11 09:00] VITALS: BP 150/70; PULSE 75; RESP 18; O2SAT 97
[2024-12-11 10:58] VITALS: BP 150/70; PULSE 70; RESP 17; TEMP 98.7; O2SAT 97
--- NOTE | 2024-12-11 11:42 | DVHPN2 ---
Subjective Doing well She is actually little better regarding her weakness in the right arm and also is able to start few words although very faint but it is an improvement Reviewed: Care Plan, H&P, Labs, Medications, Previous Orders, Radiology Changes from previous H/P or p: Changes General: Per HPI Objective Vitals Vital Signs Date Time Temp Pulse Resp B/P (MAP) Pulse Ox O2 Delivery O2 Flow Rate FiO2 12/11/24 10:58 98.7 70 17 97 12/11/24 09:40 150/70 12/11/24 08:00 Room Air* 0 21 Intake/Output Intake and Output 12/11/24 07:00 Intake Total 790 ml Balance 790 ml Intake Oral 790 ml # Voids 6 # Bowel Movements 2 General Appearance: Alert, Oriented X3 HEENT: Atraumatic Lungs: Clear to auscultation Cardiovascular: Regular rate, Normal S1, Normal S2 Abdomen: Normal bowel sounds, Soft, No tenderness Extremities: No edema Neuro: Other (Right upper extremity weakness 3/5 compared to left 5/5) Medications Current Medications Medications Dose Ordered Sig/Ade Route Start Time Stop Time Status Last Admin Dose Admin Acetaminophen/ Hydrocodone Bitart 1 tab Q4HP PRN PO 12/06/24 18:00 12/07/24 21:40 1 TAB Ondansetron HCl 4 mg Q4HP PRN IV 12/06/24 18:00 12/07/24 14:59 4 MG Acetaminophen 650 mg Q6HP PRN PO 12/06/24 18:00 Nitroglycerin 0.4 mg Q5MINP PRN SL 12/06/24 18:00 Morphine Sulfate 2 mg Q30M PRN IV 12/06/24 18:00 Diagnostic Test (Pha) 1 strip ACHS 12/06/24 22:00 12/11/24 06:37 1 STRIP Insulin Human Regular ACHS SC 12/06/24 22:00 12/11/24 06:39 2 UNITS Dextrose 50 ml UD PRN IV 12/06/24 18:00 Amlodipine Besylate 5 mg DAILY PO 12/07/24 10:00 12/11/24 09:40 5 MG Aspirin 81 mg DAILY PO 12/07/24 10:00 12/11/24 09:40 81 MG Gabapentin 100 mg TID PO 12/06/24 22:00 12/11/24 06:37 100 MG Cholecalciferol 2,000 unit DAILY PO 12/07/24 10:00 12/11/24 09:40 2,000 UNIT Pantoprazole Sodium 40 mg DAILY PO 12/07/24 10:00 12/11/24 09:40 40 MG Atorvastatin Calcium 80 mg HS PO 12/07/24 12:15 12/10/24 22:17 80 MG Lisinopril 20 mg DAILY PO 12/08/24 10:00 12/11/24 09:40 20 MG Hydralazine HCl 10 mg Q6HP PRN IV 12/08/24 15:15 12/10/24 13:11 10 MG Clopidogrel Bisulfate 75 mg DAILY PO 12/09/24 10:00 12/29/24 23:00 12/11/24 09:40 75 MG Insulin Glargine 10 units BID@0700,2200 SC 12/09/24 22:00 12/11/24 06:40 10 UNITS Laboratory Results Laboratory Tests 12/07/24 06:15 Urinalysis Test 12/06/24 13:11 Urine Color Light-yellow (Yellow) Urine Clarity Clear (Clear) Urine pH 6.0 (5.0-9.0) Urine Specific [place] 1.015 (1.001-1.035) Urine Protein 1+ (Negative) H Urine Ketones Negative (Negative) Urine Blood Negative /uL (Negative) Urine Nitrite Negative (Negative) Urine Bilirubin Negative (Negative) Urine Urobilinogen Normal mg/dL (Negative) Urine Leukocyte Esterase Negative /uL (Negative) Urine RBC 3 /hpf (0 - 4) Urine Microscopic WBC 1 /HPF (0-5) Urine Squamous Epithelial Cells Mod /hpf (<5) Urine Bacteria Few /hpf (None Seen) H Urine Glucose 4+ mg/dL (Normal) H Assessment/Plan Assessment/Plan 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 Merrill Left Critical carotid stenosis: Patient needs vascular intervention and therefore she will need to be transferred to higher level of care for carotid artery intervention Discussed with the family at the bedside Full code Advance directives discussed with the family inpatient for 20 minutes 12/09/2024: Continue aspirin and Plavix Discussed the case again with Dr. Merrill and with Interventional Radiology from [facility] and due to the fact that the internal carotid artery stenosis is intracranial, and intervention for that stenosis is not recommended, Medical management is recommended for this patient based on the above findings Cancel the transfer to higher level of care Continue aspirin and Plavix She will need aspirin 81 mg daily for She will need Plavix 75 mg daily for 90 days Lipitor Aggressive control of her diabetes and hypertension and dyslipidemia Hemoglobin A1c is 12.6 Triglycerides 187 Cholesterol 167 LDL is 100 Change the diet to consistent carb low cholesterol cardiac diet Lisinopril 20 mg daily Hydralazine p.r.n. Amlodipine 5 mg daily Discontinue the IV fluids Physical therapy evaluation and treatment Monitor closely Lantus 10 units twice a day 12/11/2024: The patient was supposed to go home yesterday however the home health was not done, her insurance did not approve it since she is able to ambulate fully The patient can still go home today Follow up as an outpatient with her primary care physician to get a referral for speech therapy as an outpatient Continue aspirin 81 mg daily Lipitor 80 mg daily Plavix 75 mg daily for 90 days Plan discussed with: Patient, Daughter My Orders Orders - TATY SANTOS MD Procedure Category Date Status Time * 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
== END 2024-12-11 13:30 | disposition home or self-care (01) | DRG 66 ==
LOC: ER 11:58 → OVERFLOW 17:55 → TELE-WESTW 23:38 → TELE-CENTR 12-08 20:57
PROVIDERS: ADMIT Internal Medicine Geriatric Medicine; ATTEND Internal Medicine Geriatric Medicine
DX: I63.9 Cerebral infarction, unspecified (principal); R47.01 Aphasia; E11.9 Type 2 diabetes mellitus without complications; E78.2 Mixed hyperlipidemia; F41.9 Anxiety disorder, unspecified; I65.29 Occlusion and stenosis of unspecified carotid artery; I10 Essential (primary) hypertension; G83.21 Monoplegia of upper limb affecting right dominant side; I16.0 Hypertensive urgency; E03.9 Hypothyroidism, unspecified; Z79.899 Other long term (current) drug therapy; Z90.49 Acquired absence of other specified parts of digestive tract; Z83.3 Family history of diabetes mellitus; Z82.49 Family history of ischemic heart disease and other diseases of the circulatory system; Z90.710 Acquired absence of both cervix and uterus
CPT/HCPCS: 36415; 70450; 70496; 70498; 70551; 71045; 80053; 80061; 80307; 81001; 82962; 83036; 83605; 83735; 83880; 84484; 85025; 85610; 85730; 92610; 93005; 93306; 93886; 96365; 97110; 97116; 97163; 99291; G0378; J1815; J2405